=== PATIENT | male | born 1945 | race Caucasian/White ===

== ENCOUNTER 2019-10-28 08:40 | Day surgery (SDC) | payer MEDICARE ==
[2019-10-28] MEDS ORDERED: LIDOcaine 2% 5ml jelly ONE (09:37)
[2019-10-28 10:38] LABS: BASOPHILS % (AUTO) 0.5 % (0-1); EOSINOPHILS # (AUTO) 0.1 X10'3 (0-0.9); EOSINOPHILS % (AUTO) 1.2 % (0-6); HEMATOCRIT 40.6 % (42.0-52.0); HEMOGLOBIN 13.8 g/dl (14.0-17.9); LYMPHOCYTES # (AUTO) 1.2 X10'3 (1.1-4.8); LYMPHOCYTES % (AUTO) 17.4 % (21-51); MEAN CORPUSCULAR HEMOGLOBIN 32.5 PG (27.0-31.0); MEAN CORPUSCULAR VOLUME 95.6 FL (78-98); MEAN PLATELET VOLUME 7.6 FL (7.4-10.4); MONOCYTES # (AUTO) 0.6 X10'3 (0-0.9); NEUTROPHILS # (AUTO) 5.2 X10'3 (1.8-7.7); NEUTROPHILS % (AUTO) 72.9 % (42-75); PLATELET COUNT 199 X10'3 (140-440); RED BLOOD COUNT 4.24 X10'6 (4.70-6.10); WHITE BLOOD COUNT 7.1 X10'3 (4.5-11.0)
[2019-10-28 10:52] LABS: ALANINE AMINOTRANSFERASE 29 U/L (12-78); ALBUMIN 3.5 G/DL (3.4-5.0); ALKALINE PHOSPHATASE 43 IU/L (46-116); ANION GAP 3 (8-16); ASPARTATE AMINO TRANSFERASE 33 U/L (10-37); BILIRUBIN,TOTAL 0.5 MG/DL (0.1-1.0); BLOOD UREA NITROGEN 22 MG/DL (7-18); BUN/CREATININE RATIO 20.8 (5.4-32.0); CALCIUM 8.9 MG/DL (8.5-10.1); CHLORIDE 103 MMOL/L (99-107); CREATININE 1.06 MG/DL (0.60-1.10); GLUCOSE 179 MG/DL (70-104); POTASSIUM 3.8 MMOL/L (3.5-5.1); SODIUM 137 MMOL/L (135-145); TOTAL CARBON DIOXIDE 31.3 MMOL/L (24-32); TOTAL PROTEIN 6.9 G/DL (6.4-8.2); eGFR 69 ML/MIN
[2019-10-28 11:34] LABS: HEMOGLOBIN A1C 7.6 % (4.5-6.2)
== END 2019-10-28 10:40 | disposition home or self-care (01) ==
LOC: WOUND CARE 08:40
PROVIDERS: ATTEND Nurse Practitioner
DX: E11.621 Type 2 diabetes mellitus with foot ulcer (principal); L97.511 Non-pressure chronic ulcer of other part of right foot limited to breakdown of skin; L97.811 Non-pressure chronic ulcer of other part of right lower leg limited to breakdown of skin; L97.821 Non-pressure chronic ulcer of other part of left lower leg limited to breakdown of skin; Q82.0 Hereditary lymphedema; I48.19 Other persistent atrial fibrillation; I87.2 Venous insufficiency (chronic) (peripheral); I11.0 Hypertensive heart disease with heart failure; I50.9 Heart failure, unspecified; Z87.891 Personal history of nicotine dependence
CPT/HCPCS: 36415; 36416; 80053; 82948; 83036; 85025; 85651; 86140; 97597; 97598

== ENCOUNTER 2019-11-04 08:17 | Day surgery (SDC) | payer MEDICARE ==
[2019-11-04] MEDS ORDERED: LIDOcaine 2% 5ml jelly ONE (08:44)
== END 2019-11-04 09:48 | disposition home or self-care (01) ==
LOC: WOUND CARE 08:17
PROVIDERS: ATTEND Nurse Practitioner
DX: E11.621 Type 2 diabetes mellitus with foot ulcer (principal); L97.511 Non-pressure chronic ulcer of other part of right foot limited to breakdown of skin; L97.811 Non-pressure chronic ulcer of other part of right lower leg limited to breakdown of skin; L97.821 Non-pressure chronic ulcer of other part of left lower leg limited to breakdown of skin; Q82.0 Hereditary lymphedema; I48.19 Other persistent atrial fibrillation; I87.2 Venous insufficiency (chronic) (peripheral); I11.0 Hypertensive heart disease with heart failure; I50.9 Heart failure, unspecified; Z87.891 Personal history of nicotine dependence
CPT/HCPCS: 82948; 87070; 87075; 87077; 87102; 87186; 97597; 97598

== ENCOUNTER 2019-11-11 08:16 | Outpatient (CLI) | payer MEDICARE | END 2019-11-11 09:21 | disposition home or self-care (01) | LOC: WOUND CARE 08:16 → EDSTATUS 08:20 → WOUND CARE 09:21 | PROVIDERS: ATTEND Nurse Practitioner | DX: E11.621 Type 2 diabetes mellitus with foot ulcer (principal); L97.515 Non-pressure chronic ulcer of other part of right foot with muscle involvement without evidence of necrosis; L97.521 Non-pressure chronic ulcer of other part of left foot limited to breakdown of skin; L97.811 Non-pressure chronic ulcer of other part of right lower leg limited to breakdown of skin; L97.821 Non-pressure chronic ulcer of other part of left lower leg limited to breakdown of skin; Q82.0 Hereditary lymphedema; I48.19 Other persistent atrial fibrillation; I87.2 Venous insufficiency (chronic) (peripheral); I11.0 Hypertensive heart disease with heart failure; I50.9 Heart failure, unspecified; Z87.891 Personal history of nicotine dependence | CPT/HCPCS: 29580; 82948; G0463 ==

== ENCOUNTER 2019-11-15 08:00 | Outpatient (CLI) | payer MEDICARE ==
[2019-11-15] MEDS ORDERED: LIDOcaine 2% 5ml jelly ONE ×2 (08:40→09:07)
== END 2019-11-15 09:38 | disposition home or self-care (01) ==
LOC: EDSTATUS 08:00 → WOUND CARE 08:00
PROVIDERS: ATTEND Registered Nurse General Practice
DX: E11.621 Type 2 diabetes mellitus with foot ulcer (principal); L97.512 Non-pressure chronic ulcer of other part of right foot with fat layer exposed; L97.521 Non-pressure chronic ulcer of other part of left foot limited to breakdown of skin; I48.19 Other persistent atrial fibrillation; I87.2 Venous insufficiency (chronic) (peripheral); I11.0 Hypertensive heart disease with heart failure; I50.9 Heart failure, unspecified; Q82.0 Hereditary lymphedema; E66.9 Obesity, unspecified; Z87.891 Personal history of nicotine dependence; Z68.42 Body mass index [BMI] 45.0-49.9, adult
CPT/HCPCS: 36416; 82948; 97597; 97598

== ENCOUNTER 2019-11-23 07:50 | Outpatient (CLI) | payer MEDICARE ==
[2019-11-23] MEDS ORDERED: LIDOcaine 2% 5ml jelly ONE (08:37)
== END 2019-11-23 09:30 | disposition home or self-care (01) ==
LOC: WOUND CARE 07:50 → EDSTATUS 08:20 → WOUND CARE 09:30
PROVIDERS: ATTEND Nurse Practitioner
DX: E11.621 Type 2 diabetes mellitus with foot ulcer (principal); L97.511 Non-pressure chronic ulcer of other part of right foot limited to breakdown of skin; E11.622 Type 2 diabetes mellitus with other skin ulcer; L97.811 Non-pressure chronic ulcer of other part of right lower leg limited to breakdown of skin; L97.821 Non-pressure chronic ulcer of other part of left lower leg limited to breakdown of skin; E66.9 Obesity, unspecified; Q82.0 Hereditary lymphedema; I48.19 Other persistent atrial fibrillation; I87.2 Venous insufficiency (chronic) (peripheral); I11.0 Hypertensive heart disease with heart failure; I50.9 Heart failure, unspecified; Z87.891 Personal history of nicotine dependence; Z68.42 Body mass index [BMI] 45.0-49.9, adult
CPT/HCPCS: 36416; 82948; 87070; 87075; 87077; 87102; 87186; 97597; 97598

== ENCOUNTER 2019-11-29 08:15 | Day surgery (SDC) | payer MEDICARE ==
[2019-11-29] MEDS ORDERED: LIDOcaine 2% 5ml jelly ONE (08:31)
== END 2019-11-29 09:15 | disposition home or self-care (01) ==
LOC: WOUND CARE 08:15
PROVIDERS: ATTEND Nurse Practitioner
DX: E11.621 Type 2 diabetes mellitus with foot ulcer (principal); L97.512 Non-pressure chronic ulcer of other part of right foot with fat layer exposed; E11.622 Type 2 diabetes mellitus with other skin ulcer; L97.811 Non-pressure chronic ulcer of other part of right lower leg limited to breakdown of skin; L97.821 Non-pressure chronic ulcer of other part of left lower leg limited to breakdown of skin; Q82.0 Hereditary lymphedema; E66.9 Obesity, unspecified; I48.19 Other persistent atrial fibrillation; I87.2 Venous insufficiency (chronic) (peripheral); I11.0 Hypertensive heart disease with heart failure; I50.9 Heart failure, unspecified; Z87.891 Personal history of nicotine dependence; Z68.42 Body mass index [BMI] 45.0-49.9, adult
CPT/HCPCS: 36416; 82948; 97597; 97598

== ENCOUNTER 2019-12-07 07:44 | Outpatient (CLI) | payer MEDICARE ==
[2019-12-07] MEDS ORDERED: LIDOcaine 2% 5ml jelly ONE (09:11)
== END 2019-12-07 23:59 | disposition home or self-care (01) ==
LOC: WOUND CARE 07:44 → EDSTATUS 08:20 → WOUND CARE 23:59
PROVIDERS: ATTEND Nurse Practitioner
DX: E11.621 Type 2 diabetes mellitus with foot ulcer (principal); L97.512 Non-pressure chronic ulcer of other part of right foot with fat layer exposed; L97.521 Non-pressure chronic ulcer of other part of left foot limited to breakdown of skin; E11.622 Type 2 diabetes mellitus with other skin ulcer; L97.811 Non-pressure chronic ulcer of other part of right lower leg limited to breakdown of skin; L97.821 Non-pressure chronic ulcer of other part of left lower leg limited to breakdown of skin; I48.19 Other persistent atrial fibrillation; I87.2 Venous insufficiency (chronic) (peripheral); I11.0 Hypertensive heart disease with heart failure; I50.9 Heart failure, unspecified; Q82.0 Hereditary lymphedema; E66.9 Obesity, unspecified; Z87.891 Personal history of nicotine dependence; Z68.42 Body mass index [BMI] 45.0-49.9, adult
CPT/HCPCS: 36416; 82948; 97597; 97598

== ENCOUNTER 2019-12-14 07:53 | Outpatient (CLI) | payer MEDICARE ==
[2019-12-14] MEDS ORDERED: LIDOcaine 2% 5ml jelly ONE (08:46)
== END 2019-12-14 23:59 | disposition home or self-care (01) ==
LOC: WOUND CARE 07:53
PROVIDERS: ATTEND Nurse Practitioner
DX: E11.622 Type 2 diabetes mellitus with other skin ulcer (principal); I83.018 Varicose veins of right lower extremity with ulcer other part of lower leg; L97.812 Non-pressure chronic ulcer of other part of right lower leg with fat layer exposed; E11.621 Type 2 diabetes mellitus with foot ulcer; I83.015 Varicose veins of right lower extremity with ulcer other part of foot; L97.512 Non-pressure chronic ulcer of other part of right foot with fat layer exposed; I83.028 Varicose veins of left lower extremity with ulcer other part of lower leg; L97.822 Non-pressure chronic ulcer of other part of left lower leg with fat layer exposed; I83.025 Varicose veins of left lower extremity with ulcer other part of foot; L97.521 Non-pressure chronic ulcer of other part of left foot limited to breakdown of skin; Q82.0 Hereditary lymphedema; I87.2 Venous insufficiency (chronic) (peripheral); I70.242 Atherosclerosis of native arteries of left leg with ulceration of calf; L97.221 Non-pressure chronic ulcer of left calf limited to breakdown of skin; I70.232 Atherosclerosis of native arteries of right leg with ulceration of calf; L97.211 Non-pressure chronic ulcer of right calf limited to breakdown of skin; I48.19 Other persistent atrial fibrillation; I11.0 Hypertensive heart disease with heart failure; I50.9 Heart failure, unspecified; E66.9 Obesity, unspecified; Z87.891 Personal history of nicotine dependence; Z68.42 Body mass index [BMI] 45.0-49.9, adult
CPT/HCPCS: 36416; 82948; 87070; 87075; 87077; 87186; 93925; 97597; 97598

== ENCOUNTER 2019-12-22 09:04 | Outpatient (CLI) | payer MEDICARE ==
[2019-12-22] MEDS ORDERED: LIDOcaine 2% 5ml jelly ONE (09:43)
[2019-12-22] MEDS ORDERED: gentamicin 0.1% topical ointment 15gm TP ONE (10:32)
== END 2019-12-22 23:59 | disposition home or self-care (01) ==
LOC: WOUND CARE 09:04
PROVIDERS: ATTEND Nurse Practitioner
DX: E11.622 Type 2 diabetes mellitus with other skin ulcer (principal); I83.018 Varicose veins of right lower extremity with ulcer other part of lower leg; L97.812 Non-pressure chronic ulcer of other part of right lower leg with fat layer exposed; E11.621 Type 2 diabetes mellitus with foot ulcer; I83.015 Varicose veins of right lower extremity with ulcer other part of foot; L97.515 Non-pressure chronic ulcer of other part of right foot with muscle involvement without evidence of necrosis; I83.025 Varicose veins of left lower extremity with ulcer other part of foot; L97.521 Non-pressure chronic ulcer of other part of left foot limited to breakdown of skin; I83.028 Varicose veins of left lower extremity with ulcer other part of lower leg; L97.822 Non-pressure chronic ulcer of other part of left lower leg with fat layer exposed; E11.65 Type 2 diabetes mellitus with hyperglycemia; I70.242 Atherosclerosis of native arteries of left leg with ulceration of calf; L97.221 Non-pressure chronic ulcer of left calf limited to breakdown of skin; I70.232 Atherosclerosis of native arteries of right leg with ulceration of calf; L97.211 Non-pressure chronic ulcer of right calf limited to breakdown of skin; I48.19 Other persistent atrial fibrillation; I11.0 Hypertensive heart disease with heart failure; I50.9 Heart failure, unspecified; E66.9 Obesity, unspecified; Z87.891 Personal history of nicotine dependence; Z68.42 Body mass index [BMI] 45.0-49.9, adult
CPT/HCPCS: 29581; 82948

== ENCOUNTER 2019-12-28 09:14 | Outpatient (CLI) | payer MEDICARE ==
[2019-12-28] MEDS ORDERED: LIDOcaine 2% 5ml jelly ONE (09:36)
[2019-12-28] MEDS ORDERED: gentamicin 0.1% topical ointment 15gm TP ONE (10:10)
== END 2019-12-28 23:59 | disposition home or self-care (01) ==
LOC: WOUND CARE 09:14
PROVIDERS: ATTEND Nurse Practitioner
DX: E11.622 Type 2 diabetes mellitus with other skin ulcer (principal); I83.018 Varicose veins of right lower extremity with ulcer other part of lower leg; L97.812 Non-pressure chronic ulcer of other part of right lower leg with fat layer exposed; I83.028 Varicose veins of left lower extremity with ulcer other part of lower leg; L97.822 Non-pressure chronic ulcer of other part of left lower leg with fat layer exposed; E11.621 Type 2 diabetes mellitus with foot ulcer; I83.015 Varicose veins of right lower extremity with ulcer other part of foot; L97.512 Non-pressure chronic ulcer of other part of right foot with fat layer exposed; I70.242 Atherosclerosis of native arteries of left leg with ulceration of calf; L97.221 Non-pressure chronic ulcer of left calf limited to breakdown of skin; Q82.0 Hereditary lymphedema; E11.65 Type 2 diabetes mellitus with hyperglycemia; I48.19 Other persistent atrial fibrillation; I11.0 Hypertensive heart disease with heart failure; I50.9 Heart failure, unspecified; E66.9 Obesity, unspecified; Z87.891 Personal history of nicotine dependence; Z68.42 Body mass index [BMI] 45.0-49.9, adult
CPT/HCPCS: 11042; 29581; 36416; 82948

== ENCOUNTER 2020-01-04 09:15 | Outpatient (CLI) | payer MEDICARE ==
[2020-01-04] MEDS ORDERED: LIDOcaine 2% 5ml jelly ONE (09:45)
== END 2020-01-04 23:59 | disposition home or self-care (01) ==
LOC: WOUND CARE 09:15
PROVIDERS: ATTEND Nurse Practitioner
DX: E11.622 Type 2 diabetes mellitus with other skin ulcer (principal); I83.018 Varicose veins of right lower extremity with ulcer other part of lower leg; L97.812 Non-pressure chronic ulcer of other part of right lower leg with fat layer exposed; I83.028 Varicose veins of left lower extremity with ulcer other part of lower leg; L97.822 Non-pressure chronic ulcer of other part of left lower leg with fat layer exposed; E11.621 Type 2 diabetes mellitus with foot ulcer; I83.015 Varicose veins of right lower extremity with ulcer other part of foot; L97.512 Non-pressure chronic ulcer of other part of right foot with fat layer exposed; I70.242 Atherosclerosis of native arteries of left leg with ulceration of calf; L97.221 Non-pressure chronic ulcer of left calf limited to breakdown of skin; I70.232 Atherosclerosis of native arteries of right leg with ulceration of calf; L97.211 Non-pressure chronic ulcer of right calf limited to breakdown of skin; Q82.0 Hereditary lymphedema; E11.65 Type 2 diabetes mellitus with hyperglycemia; I48.19 Other persistent atrial fibrillation; I11.0 Hypertensive heart disease with heart failure; I50.9 Heart failure, unspecified; E66.9 Obesity, unspecified; Z87.891 Personal history of nicotine dependence; Z68.42 Body mass index [BMI] 45.0-49.9, adult
CPT/HCPCS: 82948; 97597; 97598

== ENCOUNTER 2020-01-11 09:13 | Outpatient (CLI) | payer MEDICARE ==
[2020-01-11] MEDS ORDERED: LIDOcaine 2% 5ml jelly ONE (10:19)
== END 2020-01-11 23:59 | disposition home or self-care (01) ==
LOC: WOUND CARE 09:13
PROVIDERS: ATTEND Nurse Practitioner
DX: E11.622 Type 2 diabetes mellitus with other skin ulcer (principal); I83.018 Varicose veins of right lower extremity with ulcer other part of lower leg; L97.812 Non-pressure chronic ulcer of other part of right lower leg with fat layer exposed; I83.028 Varicose veins of left lower extremity with ulcer other part of lower leg; L97.822 Non-pressure chronic ulcer of other part of left lower leg with fat layer exposed; E11.621 Type 2 diabetes mellitus with foot ulcer; I83.015 Varicose veins of right lower extremity with ulcer other part of foot; L97.512 Non-pressure chronic ulcer of other part of right foot with fat layer exposed; I70.242 Atherosclerosis of native arteries of left leg with ulceration of calf; L97.221 Non-pressure chronic ulcer of left calf limited to breakdown of skin; I70.232 Atherosclerosis of native arteries of right leg with ulceration of calf; L97.211 Non-pressure chronic ulcer of right calf limited to breakdown of skin; I83.025 Varicose veins of left lower extremity with ulcer other part of foot; L97.521 Non-pressure chronic ulcer of other part of left foot limited to breakdown of skin; Q82.0 Hereditary lymphedema; E11.65 Type 2 diabetes mellitus with hyperglycemia; I48.19 Other persistent atrial fibrillation; I11.0 Hypertensive heart disease with heart failure; I50.9 Heart failure, unspecified; E66.9 Obesity, unspecified; Z87.891 Personal history of nicotine dependence; Z68.42 Body mass index [BMI] 45.0-49.9, adult
CPT/HCPCS: 11042; 11045; 97597

== ENCOUNTER 2020-01-19 09:20 | Outpatient (CLI) | payer MEDICARE ==
[2020-01-19] MEDS ORDERED: LIDOcaine 2% 5ml jelly ONE ×2 (10:04→10:05)
== END 2020-01-19 23:59 | disposition home or self-care (01) ==
LOC: WOUND CARE 09:20
PROVIDERS: ATTEND Nurse Practitioner
DX: E11.622 Type 2 diabetes mellitus with other skin ulcer (principal); I83.018 Varicose veins of right lower extremity with ulcer other part of lower leg; L97.812 Non-pressure chronic ulcer of other part of right lower leg with fat layer exposed; I83.028 Varicose veins of left lower extremity with ulcer other part of lower leg; L97.822 Non-pressure chronic ulcer of other part of left lower leg with fat layer exposed; E11.621 Type 2 diabetes mellitus with foot ulcer; I83.015 Varicose veins of right lower extremity with ulcer other part of foot; L97.512 Non-pressure chronic ulcer of other part of right foot with fat layer exposed; I70.242 Atherosclerosis of native arteries of left leg with ulceration of calf; L97.221 Non-pressure chronic ulcer of left calf limited to breakdown of skin; I70.232 Atherosclerosis of native arteries of right leg with ulceration of calf; L97.211 Non-pressure chronic ulcer of right calf limited to breakdown of skin; I83.025 Varicose veins of left lower extremity with ulcer other part of foot; L97.521 Non-pressure chronic ulcer of other part of left foot limited to breakdown of skin; Q82.0 Hereditary lymphedema; E11.65 Type 2 diabetes mellitus with hyperglycemia; I48.19 Other persistent atrial fibrillation; I11.0 Hypertensive heart disease with heart failure; I50.9 Heart failure, unspecified; E66.9 Obesity, unspecified; Z87.891 Personal history of nicotine dependence; Z68.42 Body mass index [BMI] 45.0-49.9, adult
CPT/HCPCS: 11042; 11045

== ENCOUNTER 2020-02-02 10:51 | Outpatient (CLI) | payer MEDICARE ==
[2020-02-02] MEDS ORDERED: LIDOcaine 2% 5ml jelly ONE ×2 (12:03)
== END 2020-02-02 23:59 | disposition home or self-care (01) ==
LOC: WOUND CARE 10:51
PROVIDERS: ATTEND Nurse Practitioner
DX: E11.622 Type 2 diabetes mellitus with other skin ulcer (principal); I83.018 Varicose veins of right lower extremity with ulcer other part of lower leg; L97.812 Non-pressure chronic ulcer of other part of right lower leg with fat layer exposed; I83.028 Varicose veins of left lower extremity with ulcer other part of lower leg; L97.822 Non-pressure chronic ulcer of other part of left lower leg with fat layer exposed; E11.621 Type 2 diabetes mellitus with foot ulcer; I83.015 Varicose veins of right lower extremity with ulcer other part of foot; L97.512 Non-pressure chronic ulcer of other part of right foot with fat layer exposed; I70.242 Atherosclerosis of native arteries of left leg with ulceration of calf; L97.221 Non-pressure chronic ulcer of left calf limited to breakdown of skin; I70.232 Atherosclerosis of native arteries of right leg with ulceration of calf; L97.211 Non-pressure chronic ulcer of right calf limited to breakdown of skin; I83.025 Varicose veins of left lower extremity with ulcer other part of foot; L97.521 Non-pressure chronic ulcer of other part of left foot limited to breakdown of skin; Q82.0 Hereditary lymphedema; E11.65 Type 2 diabetes mellitus with hyperglycemia; I48.19 Other persistent atrial fibrillation; I11.0 Hypertensive heart disease with heart failure; I50.9 Heart failure, unspecified; E66.9 Obesity, unspecified; Z87.891 Personal history of nicotine dependence; Z68.42 Body mass index [BMI] 45.0-49.9, adult
CPT/HCPCS: 11042; 11045; 82948; 87070; 87075; 87077; 87186

== ENCOUNTER → 2020-04-19 | Outpatient (CLI) | payer MEDICARE ==
[~2020-04-19] MED LIST: LIDOcaine 2% 5ml jelly ONE
== END | disposition home or self-care (01) ==
LOC: WOUND CARE 12:26
PROVIDERS: ATTEND Nurse Practitioner
DX: E11.622 Type 2 diabetes mellitus with other skin ulcer (principal); I83.018 Varicose veins of right lower extremity with ulcer other part of lower leg; L97.812 Non-pressure chronic ulcer of other part of right lower leg with fat layer exposed; I83.028 Varicose veins of left lower extremity with ulcer other part of lower leg; L97.822 Non-pressure chronic ulcer of other part of left lower leg with fat layer exposed; E11.621 Type 2 diabetes mellitus with foot ulcer; I83.015 Varicose veins of right lower extremity with ulcer other part of foot; L97.515 Non-pressure chronic ulcer of other part of right foot with muscle involvement without evidence of necrosis; I83.025 Varicose veins of left lower extremity with ulcer other part of foot; L97.521 Non-pressure chronic ulcer of other part of left foot limited to breakdown of skin; I70.242 Atherosclerosis of native arteries of left leg with ulceration of calf; L97.221 Non-pressure chronic ulcer of left calf limited to breakdown of skin; I70.232 Atherosclerosis of native arteries of right leg with ulceration of calf; L97.211 Non-pressure chronic ulcer of right calf limited to breakdown of skin; Q82.0 Hereditary lymphedema; E11.65 Type 2 diabetes mellitus with hyperglycemia; I48.19 Other persistent atrial fibrillation; I11.0 Hypertensive heart disease with heart failure; I50.9 Heart failure, unspecified; E66.9 Obesity, unspecified; Z87.891 Personal history of nicotine dependence; Z68.42 Body mass index [BMI] 45.0-49.9, adult
CPT/HCPCS: 11042; 97597

== ENCOUNTER 2021-03-14 11:00 | Inpatient (IN) | payer MEDICARE ==
[~2021-03-14] VITALS: Ht 182.9 cm; Wt 136.4 kg
[~2021-03-14 11:00] MED LIST changes: +ASPI-1264 PO; +CARV25TA PO; +CEPH-585 PO; +DIGO125T PO; -LIDOcaine 2% 5ml jelly ONE; +LISI20TA28 PO; +SPIR25TA5 PO; +WARF3TAB56 PO
[2021-03-14 11:57] LABS: CLARITY,URINE CLOUDY (Clear); GLUCOSE, URINE NEGATIVE (Neg); KETONES,URINE TRACE mg/dl (Neg); LEUKOCYTE ESTERASE ,URINE NEGATIVE (Neg); NITRITES, URINE NEGATIVE (Neg); OCCULT BLOOD,URINE LARGE (Neg); PH,URINE 6.5 (4.8-8.0); PROTEIN,URINE 100 mg/dl (Neg)
[2021-03-14 12:00] LABS: BASOPHILS % (AUTO) 0.3 % (0-1); EOSINOPHILS % (AUTO) 0.3 % (0-6); HEMATOCRIT 42.9 % (42.0-52.0); HEMOGLOBIN 14.4 g/dl (14.0-17.9); LYMPHOCYTES # (AUTO) 0.6 X10'3 (1.1-4.8); LYMPHOCYTES % (AUTO) 9.4 % (21-51); MEAN CORPUSCULAR HEMOGLOBIN 30.9 PG (27.0-31.0); MEAN CORPUSCULAR HGB CONC 33.6 g/dL (33.0-36.5); MEAN CORPUSCULAR VOLUME 91.8 FL (78-98); MEAN PLATELET VOLUME 6.6 FL (7.4-10.4); MONOCYTES # (AUTO) 0.4 X10'3 (0-0.9); MONOCYTES % (AUTO) 5.5 % (2-12); NEUTROPHILS # (AUTO) 5.4 X10'3 (1.8-7.7); NEUTROPHILS % (AUTO) 84.5 % (42-75); PLATELET COUNT 158 X10'3 (140-440); RED BLOOD COUNT 4.68 X10'6 (4.70-6.10); RED CELL DISTRIBUTION WIDTH 16.8 % (11.5-14.5); WHITE BLOOD COUNT 6.4 X10'3 (4.5-11.0)
[2021-03-14 12:03] LABS: UA COLLECTION TYPE CLN CATCH MIDSTREAM
[2021-03-14 12:04] LABS: COLOR,URINE AMBER (Yellow)
[2021-03-14 12:05] LABS: SQUAMOUS EPITHELIAL CELL,UR MODERATE /LPF (FEW)
[2021-03-14 12:07] LABS: RBC,URINE TNTC /HPF (0-2)
[2021-03-14 12:10] LABS: CAL OXALATE CRYSTALS FEW /HPF (NEGATIVE)
[2021-03-14 12:12] LABS: HYALINE CASTS 0-3 /LPF (NEGATIVE); MUCUS STRANDS MODERATE /LPF (Neg)
[2021-03-14 12:13] LABS: APTT 34 SECONDS (22-32)
[2021-03-14 12:13] LABS: BACTERIA,URINE FEW /HPF (Neg); WBC,URINE 0-4 /HPF (0-4)
[2021-03-14 12:14] LABS: ALANINE AMINOTRANSFERASE 28 U/L (12-78); ALBUMIN 2.8 G/DL (3.4-5.0); ALKALINE PHOSPHATASE 65 IU/L (46-116); ANION GAP 7 (8-16); ASPARTATE AMINO TRANSFERASE 20 U/L (10-37); BILIRUBIN,TOTAL 1.5 MG/DL (0.1-1.0); BLOOD UREA NITROGEN 14 MG/DL (7-18); BUN/CREATININE RATIO 31.1 (5.4-32.0); CALCIUM 8.9 MG/DL (8.5-10.1); CHLORIDE 106 MMOL/L (99-107); CREATININE 0.45 MG/DL (0.60-1.10); GLUCOSE 161 MG/DL (70-104); POTASSIUM 3.2 MMOL/L (3.5-5.1); SODIUM 144 MMOL/L (135-145); TOTAL CARBON DIOXIDE 31.1 MMOL/L (24-32); TOTAL PROTEIN 5.7 G/DL (6.4-8.2); eGFR > 90 ML/MIN
[2021-03-14] MEDS ORDERED: iohexol 300mg/ml 100ml inj. ONE (13:18)
--- NOTE | 2021-03-14 13:37 | NUR ---
PT FOUND WITH iv OUT, BLOOD OOZING FROM SITE. PRESSURE DRESSING APPLIED, IV RE-STARTED. PT SEEMS MORE CONFUSED THAT UPON ARRIVAL. PT HAS REMOVED CARDIAC MONTIOR ELECTRODES AND HALF OF GOWN. PT IS TALKING, DOES NOT MAKE SENSE. RE-ORIENTED TO HOSPTIAL ENVIRONEMENT. DR. MEJÍA AT BEDSIDE.
--- NOTE | 2021-03-14 13:57 | NUR ---
PT TO CT
--- NOTE | 2021-03-14 14:10 | NUR ---
RETURNED FROM CT
--- NOTE | 2021-03-14 15:09 | NUR ---
PT PLACED BACK ON MONITOR, BUT IMMEDIATELY REMOVES LEADS. VSS AT THIS TIME. HR 80-90S, AFIB, 02 96% ON RA, BP 179/98
--- NOTE | 2021-03-14 16:05 | NUR ---
PT HAD LARGE BM, PER CARE RENDERED, NEW BRIEF PLACED. MAX ASSIST TO TURN PT, TOLERATED TURNS WELL.
[2021-03-14] MEDS ORDERED: hydrALAZINE 20mg/ml inj. IV ONE (16:15)
[2021-03-14 16:20] LABS: ABG BASE EXCESS 3.8 mmol/L (-2.0-2.0); ABG HCO3 28.5 mmol/L (22.0-26.0); ABG PCO2 (T) 43.1 mmHg (35.0-48.0); ABG PO2 (T) 62.1 mmHg (75.0-100.0); FCOHb 1.9 % (0.0-3.9); FMetHb 0.3 % (0.0-1.5); TOTAL HEMOGLOBIN 14.3 G/dl (14.0-18.0)
[2021-03-14 16:31] LABS: D-DIMER 0.34 MG/L FEU (0-0.50)
[2021-03-14 16:33] LABS: BASOPHILS % (AUTO) 0.3 % (0-1); EOSINOPHILS % (AUTO) 0.2 % (0-6); HEMATOCRIT 42.7 % (42.0-52.0); HEMOGLOBIN 14.4 g/dl (14.0-17.9); LYMPHOCYTES # (AUTO) 0.7 X10'3 (1.1-4.8); LYMPHOCYTES % (AUTO) 10.2 % (21-51); MEAN CORPUSCULAR HEMOGLOBIN 30.9 PG (27.0-31.0); MEAN CORPUSCULAR HGB CONC 33.7 g/dL (33.0-36.5); MEAN CORPUSCULAR VOLUME 91.7 FL (78-98); MEAN PLATELET VOLUME 6.9 FL (7.4-10.4); MONOCYTES # (AUTO) 0.5 X10'3 (0-0.9); MONOCYTES % (AUTO) 6.7 % (2-12); NEUTROPHILS # (AUTO) 5.6 X10'3 (1.8-7.7); NEUTROPHILS % (AUTO) 82.6 % (42-75); PLATELET COUNT 172 X10'3 (140-440); RED BLOOD COUNT 4.65 X10'6 (4.70-6.10); RED CELL DISTRIBUTION WIDTH 16.9 % (11.5-14.5); WHITE BLOOD COUNT 6.8 X10'3 (4.5-11.0)
[2021-03-14] MEDS ORDERED: ASPI-1397 PO (16:42)
[2021-03-14] MEDS ORDERED: GLIP2.5T3 PO (16:43)
[2021-03-14] MEDS ORDERED: CARV25TA2 PO (16:43)
[2021-03-14] MEDS ORDERED: DOCU100C40 PO (16:43)
[2021-03-14] MEDS ORDERED: LAN0.125T PO (16:43)
[2021-03-14] MEDS ORDERED: WARF2.5T82 PO (16:43)
[2021-03-14] MEDS ORDERED: LISI10TA27 PO (16:43)
[2021-03-14] MEDS ORDERED: INSU100V43 SQ (16:43)
[2021-03-14] MEDS ORDERED: FURO20TA4 PO (16:43)
[2021-03-14] MEDS ORDERED: METF-1203 PO (16:43)
[2021-03-14] MEDS ORDERED: WARF-55 PO (16:43)
[2021-03-14] MEDS ORDERED: DULO60CA65 PO (16:43)
[2021-03-14] MEDS ORDERED: LEVO175T7 PO (16:43)
[2021-03-14] MEDS ORDERED: [UNRECOGNIZED DRUG - CODE] PO (16:44)
[2021-03-14] MEDS ORDERED: morphine 4 MG/ML inj SYRINge IV ONE (16:45)
[2021-03-14] MEDS ORDERED: OMEP20TA23 PO (16:46)
[2021-03-14] MEDS ORDERED: HYDR-3965 PO (16:46)
[2021-03-14] MEDS ORDERED: POLY119P2 PO (16:46)
[2021-03-14] MEDS ORDERED: ALBU6.7H9 INH (16:46)
[2021-03-14 16:48] LABS: C-REACTIVE PROTEIN 1.48 MG/DL (0.0-0.5)
[2021-03-14] MEDS ORDERED: metoprolol tartrate 1mg/ml inj IV ONE (16:55)
[2021-03-14] MEDS ORDERED: iohexol 350MG/ML 100ml bottle IV ONE (17:01)
--- NOTE | 2021-03-14 17:05 | NUR ---
TELENEURO CONSULT SPEAKING WITH PT
[2021-03-14] MEDS ORDERED: non-formulary drug (Duloxetine HCl 1 CAP) PO PRN (18:25)
[2021-03-14] MEDS ORDERED: dextrose ORAL solution 15 GM/59 ML bottle PO PRN ×2 (18:35)
[2021-03-14] MEDS ORDERED: bisacodyl 10mg suppository rectal RC PRN (18:35)
[2021-03-14] MEDS ORDERED: dextrose 50%-water 50ml dispensing syringe IV PRN ×2 (18:35)
[2021-03-14] MEDS ORDERED: magnesium hydroxide 30ml (MOM) UD suspension PO PRN (18:35)
[2021-03-14] MEDS ORDERED: acetaminophen 325mg tablet PO PRN ×2 (18:35)
[2021-03-14] MEDS ORDERED: magnesium 2GM in 50ml NS 50 ML IV PRN (18:35)
[2021-03-14] MEDS ORDERED: morphine 2 MG/ML inj. syringe IV PRN ×2 (18:35)
[2021-03-14] MEDS ORDERED: HYDROcodone/acetaminophen 5mg/325mg tablet PO PRN (18:35)
[2021-03-14] MEDS ORDERED: ondansetron/PF 4mg/2ml inj IV PRN (18:35)
[2021-03-14] MEDS ORDERED: HYDROcodone/acetaminophen 10/325mg tab PO PRN (18:35)
[2021-03-14] MEDS ORDERED: MESSAGE TO PHARMACY PO ONE (18:35)
[2021-03-14] MEDS ORDERED: acetaminophen 650mg rectal suppository RC PRN (18:35)
[2021-03-14] MEDS ORDERED: magnesium 4gm in 100ml NS 100 ML IV PRN (18:35)
[2021-03-14] MEDS ORDERED: diphenhydrAMINE 25mg capsule PO PRN (18:35)
[2021-03-14] MEDS ORDERED: glucagon, human recombinant 1mg kit SUBCUT PRN (18:35)
[2021-03-14] MEDS ORDERED: magnesium Cl slow-release 64mg tablet PO PRN (18:35)
[2021-03-14] MEDS ORDERED: mag hydrox/Alum hydrox/simeth 30ml oral suspension PO PRN (18:35)
[2021-03-14] MEDS ORDERED: potassium CL 10mEq/100ml bag 100 ML IV PRN (18:35)
[2021-03-14] MEDS ORDERED: methylPREDNISolone sod succ 125mg/2ml vial IV ONE (18:40)
[2021-03-14] MEDS: CefTRIAXone/D5W-Rocephin 1gm 50 ML IV SCH (18:40)
[2021-03-14] MEDS ORDERED: hydrALAZINE 20mg/ml inj. IV PRN (18:50)
[2021-03-14] MEDS: ipratropium/albuterol 3ml nebule NEB SCH ×2 (19:00→23:00)
[2021-03-14 19:07] LABS: HEMOGLOBIN A1C 6.6 % (4.5-6.2)
[2021-03-14] MEDS ORDERED: duloxetine 30mg CAPSULE.DR PO PRN (19:30)
[2021-03-14 20:00] VITALS: BP 167/105
[2021-03-14] MEDS: vancomycin/NS 1 GM ADD-VANTAGE 250 ML IV SCH (20:00)
[2021-03-14] MEDS: carVEDilol 12.5mg tablet PO SCH (20:00)
[2021-03-14] MEDS: docusate sod 100mg capsule PO SCH (20:00)
[2021-03-14] MEDS: K and/or MAG REPLACEMENT MC SCH (20:00)
[2021-03-14] MEDS ORDERED: non-formulary drug (Carvedilol (Coreg) 1 TAB) PO SCH (20:00)
--- NOTE | 2021-03-14 20:30 | NUR ---
Patient in room PCU 3026. I have received report from Brien and had the opportunity to ask questions and assume patient care.
--- NOTE | 2021-03-14 20:34 | NUR ---
TELEPHONE REPORT GIVEN TO BRETT WEINSTEIN.
[2021-03-14] MEDS: insulin glargine (Lantus) pen - multi-dose SQ SCH (21:00)
[2021-03-14] MEDS: digoxin 125mcg (0.125mg) tablet PO SCH (21:00)
--- NOTE | 2021-03-14 21:00 | NUR ---
arrived via gurney. rubio Addendum: 03/15/21 at 0059 by Cari Recinos RN arrived at 2100 via shae. transferred to bed. settling in.
[2021-03-14] MEDS ORDERED: diltiazem-NS 100mg/100ml 100 ML IV SCH (23:05)
[2021-03-14] MEDS ORDERED: phytonadione inj. 5 MG in normal saline 100ml IV soln 100 ML IV ONE (23:05)
[2021-03-14] MEDS: normal saline 1000ml 1,000 ML IV SCH (23:11)
[2021-03-15] VITALS (7 sets, daily range): BP systolic 115–151; BP diastolic 53–99
[2021-03-15] MEDS ORDERED: polyethylene glycol 3350 17gm powd pack PO PRN
[2021-03-15] MEDS: pantoprazole 40MG/NS 100ML BAG 100 ML IV SCH ×5 (01:00→20:54)
[2021-03-15] MEDS: furosemide 10 MG/1 ML 10ml inj IV SCH ×3 (01:03→20:41)
--- NOTE | 2021-03-15 01:25 | NUR ---
received patient at 2100 via e[employer]. assessment completed. pt had large BM (incontinent) full of esteban blood and lots of clots. MD notified. MD came to see pt. pt also had lung sounds of wheezing upon arrival. shortly after pt had coarse crackle wet sounding lungs. MD notified. Orders placed. approx 2330 pt was assigned a different nurse. report given to BRETT Higgins. opportunity to ask questions.
--- NOTE | 2021-03-15 01:30 | NUR ---
receieved report at 0130 from BRETT Alcala. all questions answered. pt started on Cardizem drip, bathed, IV started, and cleaned up large bloody BM. Dr is aware of bloody stool and labs where drawn. Called Dr at 0400 fro Cardizem drip increased per Dr. orders.
[2021-03-15] MEDS: ipratropium/albuterol 3ml nebule NEB SCH ×3 (03:00→23:38)
[2021-03-15 03:03] LABS: BASOPHILS % (AUTO) 0.3 % (0-1); EOSINOPHILS % (AUTO) 0 % (0-6); HEMATOCRIT 41.2 % (42.0-52.0); HEMOGLOBIN 13.9 g/dl (14.0-17.9); LYMPHOCYTES # (AUTO) 0.4 X10'3 (1.1-4.8); LYMPHOCYTES % (AUTO) 4.9 % (21-51); MEAN CORPUSCULAR HEMOGLOBIN 30.8 PG (27.0-31.0); MEAN CORPUSCULAR HGB CONC 33.6 g/dL (33.0-36.5); MEAN CORPUSCULAR VOLUME 91.7 FL (78-98); MEAN PLATELET VOLUME 7.1 FL (7.4-10.4); MONOCYTES # (AUTO) 0.1 X10'3 (0-0.9); MONOCYTES % (AUTO) 1.2 % (2-12); NEUTROPHILS # (AUTO) 7.6 X10'3 (1.8-7.7); NEUTROPHILS % (AUTO) 93.6 % (42-75); PLATELET COUNT 197 X10'3 (140-440); RED CELL DISTRIBUTION WIDTH 16.9 % (11.5-14.5); WHITE BLOOD COUNT 8.1 X10'3 (4.5-11.0)
[2021-03-15 03:13] LABS: ALANINE AMINOTRANSFERASE 33 U/L (12-78); ALKALINE PHOSPHATASE 66 IU/L (46-116); ANION GAP 13 (8-16); ASPARTATE AMINO TRANSFERASE 19 U/L (10-37); BILIRUBIN,TOTAL 1.7 MG/DL (0.1-1.0); BLOOD UREA NITROGEN 17 MG/DL (7-18); BUN/CREATININE RATIO 30.9 (5.4-32.0); CALCIUM 8.9 MG/DL (8.5-10.1); CHLORIDE 104 MMOL/L (99-107); CREATININE 0.55 MG/DL (0.60-1.10); GLUCOSE 211 MG/DL (70-104); POTASSIUM 3.2 MMOL/L (3.5-5.1); SODIUM 146 MMOL/L (135-145); TOTAL CARBON DIOXIDE 28.7 MMOL/L (24-32); TOTAL PROTEIN 5.9 G/DL (6.4-8.2); eGFR > 90 ML/MIN
[2021-03-15 03:17] LABS: CHOL/HDL RATIO 3.6 (0.00-4.99); CHOLESTEROL 146 MG/DL (0-200); HDL CHOLESTEROL 41 MG/DL (35-60); LDL CHOLESTEROL 94 MG/DL (50-100); MAGNESIUM 1.9 MG/DL (1.5-2.4); PHOSPHORUS 3.4 MG/DL (2.3-4.5); TRIGLYCERIDES 61 MG/DL (20-135)
[2021-03-15 04:01] LABS: ANISOCYTOSIS 1+; PLATELET ESTIMATE NORMAL; SMUDGE CELLS FEW; TOTAL CELLS COUNTED 100
[2021-03-15 04:02] LABS: ELLIPTOCYTES FEW
--- NOTE | 2021-03-15 06:36 | NUR ---
report given to Hina Brito RN. all questions and concerns answered.
--- NOTE | 2021-03-15 06:44 | NUR ---
Patient in room PCU 3026. I have received report from BRETT MOSES, and had the opportunity to ask questions and assume patient care.
[2021-03-15] MEDS ORDERED: pantoprazole 40mg Tablet.DR PO SCH (07:30)
[2021-03-15] MEDS: docusate sod 100mg capsule PO SCH ×3 (08:00→20:50)
[2021-03-15] MEDS ORDERED: aspirin 81mg, enteric-coated 1 TAB TABLET.DR PO SCH (08:00)
[2021-03-15] MEDS ORDERED: duloxetine 30mg CAPSULE.DR PO SCH (08:00)
[2021-03-15] MEDS: K and/or MAG REPLACEMENT MC SCH ×2 (08:00→20:00)
[2021-03-15] MEDS ORDERED: digoxin 125mcg (0.125mg) tablet PO SCH (08:00)
[2021-03-15] MEDS: levoTHYROXINE 175mcg tablet PO SCH (09:24)
[2021-03-15] MEDS: lisinopril 10 MG tablet PO SCH (09:26)
[2021-03-15] MEDS: carVEDilol 12.5mg tablet PO SCH ×2 (09:27→20:50)
[2021-03-15] MEDS: methylPREDNISolone sod succ/PF 40mg inj. IV SCH ×2 (09:27→20:41)
[2021-03-15] MEDS: vancomycin/NS 1 GM ADD-VANTAGE 250 ML IV SCH ×2 (10:43→20:42)
--- NOTE | 2021-03-15 11:03 | NUR ---
PAGE SENT Message: [id number], PT GOING TO MRI, MAY I HOLD CHASM GTT FOR PROCEDURE? HR 95. THANK YOU, FELICIA Abernathy [phone]
[2021-03-15 11:14] LABS: HEMATOCRIT 38.1 % (42.0-52.0); HEMOGLOBIN 12.9 g/dl (14.0-17.9); MEAN CORPUSCULAR HEMOGLOBIN 30.8 PG (27.0-31.0); MEAN CORPUSCULAR HGB CONC 33.8 g/dL (33.0-36.5); MEAN CORPUSCULAR VOLUME 91.1 FL (78-98); MEAN PLATELET VOLUME 7.1 FL (7.4-10.4); PLATELET COUNT 200 X10'3 (140-440); RED BLOOD COUNT 4.19 X10'6 (4.70-6.10); RED CELL DISTRIBUTION WIDTH 16.7 % (11.5-14.5); WHITE BLOOD COUNT 6.6 X10'3 (4.5-11.0)
[2021-03-15] MEDS: CefTRIAXone/D5W-Rocephin 1gm 50 ML IV SCH (11:57)
[2021-03-15] MEDS: insulin Lispro (HumaLOG) vial - multi-dose SQ SCH (12:40)
[2021-03-15] MEDS: potassium Cl 20 mEq SR tablet PO PRN ×2 (13:34→21:14)
--- NOTE | 2021-03-15 16:06 | NUR ---
Wilson Consult: Luis Rachel 9 w/ skin intact per [facility] note. Addendum: 03/15/21 at [address] Amended: Links added.
--- NOTE | 2021-03-15 16:25 | NUR ---
complete orthostatic was not completed, supine VS were done, as patient is unable to seat or stand.
--- NOTE | 2021-03-15 17:13 | NUR ---
DM consult: Pt with T2DM, well controlled with A1c 6.6%, DM education not warranted at this time. Will continue to follow. Addendum: 03/15/21 at [address] Amended: Links added.
--- NOTE | 2021-03-15 18:16 | NUR ---
Problems reprioritized. Patient report given, questions answered & plan of care reviewed with BRETT ANDERSON.
[2021-03-15 19:41] LABS: HEMATOCRIT 34.7 % (42.0-52.0); MEAN CORPUSCULAR HEMOGLOBIN 31.4 PG (27.0-31.0); MEAN CORPUSCULAR HGB CONC 34.5 g/dL (33.0-36.5); PLATELET COUNT 194 X10'3 (140-440); RED BLOOD COUNT 3.81 X10'6 (4.70-6.10); RED CELL DISTRIBUTION WIDTH 16.7 % (11.5-14.5); WHITE BLOOD COUNT 7.1 X10'3 (4.5-11.0)
[2021-03-15] MEDS: diltiazem-NS 100mg/100ml 100 ML IV SCH (20:33)
[2021-03-15] MEDS: normal saline 1000ml 1,000 ML IV SCH (20:34)
[2021-03-15] MEDS: digoxin 125mcg (0.125mg) tablet PO SCH (20:51)
[2021-03-15] MEDS: mineral oil/petrolatum, white cream 113gm jar TP SCH (20:53)
[2021-03-15] MEDS: insulin glargine (Lantus) pen - multi-dose SQ SCH (22:22)
[2021-03-16] VITALS (9 sets, daily range): BP systolic 123–152; BP diastolic 76–86
[2021-03-16] MEDS: pantoprazole 40MG/NS 100ML BAG 100 ML IV SCH ×5 (02:31→22:47)
[2021-03-16] MEDS: ipratropium/albuterol 3ml nebule NEB SCH ×6 (03:56→23:20)
[2021-03-16] MEDS: diltiazem-NS 100mg/100ml 100 ML IV SCH ×2 (05:54→15:02)
--- NOTE | 2021-03-16 06:37 | NUR ---
Problems reprioritized. Patient report given, questions answered & plan of care reviewed with BENJAMÍN WEST.
[2021-03-16] MEDS ORDERED: VANCOMYCIN LEVEL IV ONE (07:30)
[2021-03-16] MEDS: K and/or MAG REPLACEMENT MC SCH ×2 (08:00→20:00)
[2021-03-16] MEDS: mineral oil/petrolatum, white cream 113gm jar TP SCH ×2 (08:00→20:00)
[2021-03-16] MEDS: docusate sod 100mg capsule PO SCH ×3 (08:00→20:00)
[2021-03-16 08:25] LABS: BASOPHILS % (AUTO) 0.1 % (0-1); EOSINOPHILS % (AUTO) 0 % (0-6); HEMATOCRIT 35.2 % (42.0-52.0); LYMPHOCYTES # (AUTO) 0.4 X10'3 (1.1-4.8); LYMPHOCYTES % (AUTO) 6.3 % (21-51); MEAN CORPUSCULAR HEMOGLOBIN 31.3 PG (27.0-31.0); MEAN CORPUSCULAR HGB CONC 34.1 g/dL (33.0-36.5); MEAN CORPUSCULAR VOLUME 91.9 FL (78-98); MEAN PLATELET VOLUME 7.8 FL (7.4-10.4); MONOCYTES # (AUTO) 0.2 X10'3 (0-0.9); MONOCYTES % (AUTO) 3.2 % (2-12); NEUTROPHILS # (AUTO) 6.4 X10'3 (1.8-7.7); NEUTROPHILS % (AUTO) 90.4 % (42-75); PLATELET COUNT 151 X10'3 (140-440); RED BLOOD COUNT 3.83 X10'6 (4.70-6.10); RED CELL DISTRIBUTION WIDTH 17.3 % (11.5-14.5); WHITE BLOOD COUNT 7.1 X10'3 (4.5-11.0)
[2021-03-16 08:40] LABS: ALANINE AMINOTRANSFERASE 29 U/L (12-78); ALBUMIN 2.7 G/DL (3.4-5.0); ALBUMIN/GLOBULIN RATIO 1.2 (1.1-1.5); ALKALINE PHOSPHATASE 56 IU/L (46-116); ANION GAP 10 (8-16); ASPARTATE AMINO TRANSFERASE 18 U/L (10-37); BILIRUBIN,TOTAL 0.9 MG/DL (0.1-1.0); BLOOD UREA NITROGEN 21 MG/DL (7-18); BUN/CREATININE RATIO 38.2 (5.4-32.0); CALCIUM 8.6 MG/DL (8.5-10.1); CHLORIDE 107 MMOL/L (99-107); CREATININE 0.55 MG/DL (0.60-1.10); GLUCOSE 213 MG/DL (70-104); MAGNESIUM 1.9 MG/DL (1.5-2.4); PHOSPHORUS 3.7 MG/DL (2.3-4.5); POTASSIUM 3.4 MMOL/L (3.5-5.1); SODIUM 148 MMOL/L (135-145); TOTAL CARBON DIOXIDE 30.8 MMOL/L (24-32); TOTAL PROTEIN 4.9 G/DL (6.4-8.2); VANCOMYCIN,TROUGH 11.5 UG/ML (6.0-14.0); eGFR > 90 ML/MIN
[2021-03-16] MEDS: methylPREDNISolone sod succ/PF 40mg inj. IV SCH ×2 (08:48→21:57)
[2021-03-16] MEDS: levoTHYROXINE 175mcg tablet PO SCH (08:52)
[2021-03-16] MEDS: carVEDilol 12.5mg tablet PO SCH ×2 (08:53→22:02)
[2021-03-16] MEDS: lisinopril 10 MG tablet PO SCH (08:53)
[2021-03-16] MEDS: furosemide 10 MG/1 ML 10ml inj IV SCH ×2 (08:54→21:59)
[2021-03-16] MEDS: CefTRIAXone/D5W-Rocephin 1gm 50 ML IV SCH (09:14)
[2021-03-16] MEDS: insulin Lispro (HumaLOG) vial - multi-dose SQ SCH ×2 (09:26→14:32)
[2021-03-16] MEDS: normal saline 1000ml 1,000 ML IV SCH ×2 (10:47→17:29)
[2021-03-16] MEDS: vancomycin/NS 1 GM ADD-VANTAGE 250 ML IV SCH ×2 (10:52→22:58)
[2021-03-16] MEDS ORDERED: PEG 3350/Na sulf,bicarb,Cl/KCl oral sol 4 liter bottle PO ONE (16:50)
[2021-03-16] MEDS: potassium Cl 20 mEq SR tablet PO PRN ×2 (17:38→22:24)
[2021-03-16] MEDS: MESSAGE TO NURSING PO NR (18:30)
--- NOTE | 2021-03-16 18:36 | NUR ---
Problems reprioritized. Patient report given, questions answered & plan of care reviewed with Gisell WEST.
[2021-03-16] MEDS: digoxin 125mcg (0.125mg) tablet PO SCH (22:01)
[2021-03-16] MEDS: insulin glargine (Lantus) pen - multi-dose SQ SCH (23:59)
[2021-03-17] VITALS (18 sets, daily range): BP systolic 91–146; BP diastolic 53–114
[2021-03-17] MEDS: diltiazem-NS 100mg/100ml 100 ML IV SCH ×3 (04:10→22:04)
[2021-03-17] MEDS: ipratropium/albuterol 3ml nebule NEB SCH ×6 (04:13→23:11)
[2021-03-17] MEDS: pantoprazole 40MG/NS 100ML BAG 100 ML IV SCH ×5 (06:00→21:17)
[2021-03-17 06:45] LABS: BASOPHILS % (AUTO) 0.1 % (0-1); EOSINOPHILS % (AUTO) 0 % (0-6); HEMATOCRIT 32.3 % (42.0-52.0); HEMOGLOBIN 11.1 g/dl (14.0-17.9); LYMPHOCYTES # (AUTO) 0.3 X10'3 (1.1-4.8); LYMPHOCYTES % (AUTO) 5.7 % (21-51); MEAN CORPUSCULAR HEMOGLOBIN 31.3 PG (27.0-31.0); MEAN CORPUSCULAR HGB CONC 34.4 g/dL (33.0-36.5); MEAN CORPUSCULAR VOLUME 91.1 FL (78-98); MEAN PLATELET VOLUME 7.2 FL (7.4-10.4); MONOCYTES # (AUTO) 0.2 X10'3 (0-0.9); MONOCYTES % (AUTO) 2.8 % (2-12); NEUTROPHILS # (AUTO) 5.3 X10'3 (1.8-7.7); NEUTROPHILS % (AUTO) 91.4 % (42-75); PLATELET COUNT 168 X10'3 (140-440); RED BLOOD COUNT 3.55 X10'6 (4.70-6.10); RED CELL DISTRIBUTION WIDTH 17.2 % (11.5-14.5); WHITE BLOOD COUNT 5.8 X10'3 (4.5-11.0)
[2021-03-17 07:07] LABS: ALANINE AMINOTRANSFERASE 32 U/L (12-78); ALBUMIN 2.7 G/DL (3.4-5.0); ALBUMIN/GLOBULIN RATIO 1.2 (1.1-1.5); ALKALINE PHOSPHATASE 52 IU/L (46-116); ANION GAP 6 (8-16); ASPARTATE AMINO TRANSFERASE 23 U/L (10-37); BILIRUBIN,TOTAL 0.9 MG/DL (0.1-1.0); BLOOD UREA NITROGEN 20 MG/DL (7-18); BUN/CREATININE RATIO 36.4 (5.4-32.0); CALCIUM 8.2 MG/DL (8.5-10.1); CHLORIDE 110 MMOL/L (99-107); CREATININE 0.55 MG/DL (0.60-1.10); GLUCOSE 266 MG/DL (70-104); MAGNESIUM 1.7 MG/DL (1.5-2.4); PHOSPHORUS 3.1 MG/DL (2.3-4.5); SODIUM 152 MMOL/L (135-145); TOTAL CARBON DIOXIDE 36.3 MMOL/L (24-32); eGFR > 90 ML/MIN
[2021-03-17 07:09] LABS: POTASSIUM 2.6 MMOL/L (3.5-5.1)
--- NOTE | 2021-03-17 07:13 | NUR ---
Critical Potassium Message: Dr. Tomas. patient in room 3022B Casey Escobar potassium is 2.6; Will replace per protocol. [facility] PCU Custom Responses:
[2021-03-17] MEDS: CefTRIAXone/D5W-Rocephin 1gm 50 ML IV SCH (07:32)
[2021-03-17] MEDS: methylPREDNISolone sod succ/PF 40mg inj. IV SCH ×2 (07:42→21:18)
[2021-03-17] MEDS: potassium Cl 20 mEq SR tablet PO PRN ×4 (07:44→21:22)
[2021-03-17] MEDS: levoTHYROXINE 175mcg tablet PO SCH (07:45)
[2021-03-17] MEDS: lisinopril 10 MG tablet PO SCH (07:48)
[2021-03-17] MEDS: carVEDilol 12.5mg tablet PO SCH ×2 (07:48→21:23)
[2021-03-17] MEDS: K and/or MAG REPLACEMENT MC SCH ×2 (07:50→20:00)
[2021-03-17] MEDS: docusate sod 100mg capsule PO SCH ×3 (08:00→20:00)
[2021-03-17] MEDS ORDERED: VANCOMYCIN 1GM/200ML IVPB 200 ML IV SCH (08:00)
[2021-03-17] MEDS: mineral oil/petrolatum, white cream 113gm jar TP SCH ×2 (08:00→20:00)
[2021-03-17] MEDS: VANCOmycin 1250MG/NS 250ml Bag 250 ML IV SCH ×2 (08:58→21:17)
[2021-03-17] MEDS: insulin Lispro (HumaLOG) vial - multi-dose SQ SCH (10:01)
[2021-03-17] MEDS: MESSAGE TO NURSING PO NR (10:05)
--- NOTE | 2021-03-17 11:01 | NUR ---
lasix given late lasix given late due to potassium being 2.6. given no with second dose of potassium 40meq Mayr U
[2021-03-17] MEDS: furosemide 10 MG/1 ML 10ml inj IV SCH ×2 (11:13→21:19)
[2021-03-17] MEDS ORDERED: MIDAZolam 1 MG/ML 5ML VIAL ONE (12:26)
[2021-03-17] MEDS ORDERED: fentaNYL/PF 50MCG/1 ML 2ML syringe ONE (12:26)
--- NOTE | 2021-03-17 18:37 | NUR ---
Problems reprioritized. Patient report given, questions answered & plan of care reviewed with Gisell.
--- NOTE | 2021-03-17 18:40 | NUR ---
Patient in room PCU 3026. I have received report from BRETT Crawford and had the opportunity to ask questions and assume patient care.
[2021-03-17] MEDS ORDERED: potassium Cl 20 mEq SR tablet PO PRN (20:40)
[2021-03-17] MEDS ORDERED: magnesium Cl slow-release 64mg tablet PO PRN (20:40)
[2021-03-17] MEDS: digoxin 125mcg (0.125mg) tablet PO SCH (21:25)
[2021-03-17] MEDS: insulin glargine (Lantus) pen - multi-dose SQ SCH (22:29)
[2021-03-18] VITALS (12 sets, daily range): BP systolic 89–153; BP diastolic 63–91
[2021-03-18] MEDS: ipratropium/albuterol 3ml nebule NEB SCH ×6 (02:48→23:27)
--- NOTE | 2021-03-18 06:30 | NUR ---
Problems reprioritized. Patient report given, questions answered & plan of care reviewed with BRETT Baldwin.
[2021-03-18] MEDS: K and/or MAG REPLACEMENT MC SCH ×2 (08:00→20:00)
[2021-03-18] MEDS: docusate sod 100mg capsule PO SCH ×3 (08:00→20:42)
[2021-03-18] MEDS: CefTRIAXone/D5W-Rocephin 1gm 50 ML IV SCH (08:04)
[2021-03-18] MEDS: methylPREDNISolone sod succ/PF 40mg inj. IV SCH ×2 (08:05→20:41)
[2021-03-18] MEDS: VANCOmycin 1250MG/NS 250ml Bag 250 ML IV SCH (08:05)
[2021-03-18] MEDS: furosemide 10 MG/1 ML 10ml inj IV SCH (08:06)
[2021-03-18] MEDS: pantoprazole 40mg Tablet.DR PO SCH (08:17)
[2021-03-18] MEDS: carVEDilol 12.5mg tablet PO SCH ×2 (08:17→20:41)
[2021-03-18] MEDS: levoTHYROXINE 175mcg tablet PO SCH (08:18)
[2021-03-18] MEDS: lisinopril 10 MG tablet PO SCH (08:18)
[2021-03-18] MEDS: mineral oil/petrolatum, white cream 113gm jar TP SCH ×2 (08:19→20:42)
[2021-03-18] MEDS: insulin Lispro (HumaLOG) vial - multi-dose SQ SCH ×2 (09:32→13:15)
[2021-03-18] MEDS: diltiazem-NS 100mg/100ml 100 ML IV SCH ×2 (09:35→20:40)
[2021-03-18 09:36] LABS: BASOPHILS % (AUTO) 0.1 % (0-1); EOSINOPHILS % (AUTO) 0 % (0-6); HEMATOCRIT 34.8 % (42.0-52.0); HEMOGLOBIN 12.1 g/dl (14.0-17.9); LYMPHOCYTES # (AUTO) 0.3 X10'3 (1.1-4.8); LYMPHOCYTES % (AUTO) 4.4 % (21-51); MEAN CORPUSCULAR HEMOGLOBIN 31.7 PG (27.0-31.0); MEAN CORPUSCULAR HGB CONC 34.8 g/dL (33.0-36.5); MEAN CORPUSCULAR VOLUME 91.1 FL (78-98); MEAN PLATELET VOLUME 6.9 FL (7.4-10.4); MONOCYTES # (AUTO) 0.2 X10'3 (0-0.9); MONOCYTES % (AUTO) 2.8 % (2-12); NEUTROPHILS # (AUTO) 6.9 X10'3 (1.8-7.7); NEUTROPHILS % (AUTO) 92.7 % (42-75); PLATELET COUNT 198 X10'3 (140-440); RED BLOOD COUNT 3.82 X10'6 (4.70-6.10); RED CELL DISTRIBUTION WIDTH 17.1 % (11.5-14.5); WHITE BLOOD COUNT 7.5 X10'3 (4.5-11.0)
[2021-03-18 10:17] LABS: ALANINE AMINOTRANSFERASE 39 U/L (12-78); ALBUMIN/GLOBULIN RATIO 1.2 (1.1-1.5); ALKALINE PHOSPHATASE 59 IU/L (46-116); ANION GAP 5 (8-16); ASPARTATE AMINO TRANSFERASE 20 U/L (10-37); BILIRUBIN,TOTAL 1.1 MG/DL (0.1-1.0); BLOOD UREA NITROGEN 14 MG/DL (7-18); CALCIUM 8.9 MG/DL (8.5-10.1); CHLORIDE 105 MMOL/L (99-107); CREATININE 0.61 MG/DL (0.60-1.10); GLUCOSE 240 MG/DL (70-104); MAGNESIUM 1.8 MG/DL (1.5-2.4); PHOSPHORUS 2.7 MG/DL (2.3-4.5); SODIUM 147 MMOL/L (135-145); TOTAL CARBON DIOXIDE 37.5 MMOL/L (24-32); TOTAL PROTEIN 5.5 G/DL (6.4-8.2); eGFR > 90 ML/MIN
--- NOTE | 2021-03-18 10:19 | NUR ---
Patient repeatedly asked for the urinal and was voiding small amounts. After voiding 150cc, bladder scan showed over 860cc.
[2021-03-18 10:20] LABS: POTASSIUM 2.8 MMOL/L (3.5-5.1)
--- NOTE | 2021-03-18 10:25 | NUR ---
Page to Dr. Tomas Message: [id number] Escobar Peña- Bladder scanner showed >860cc. Unable to void full amount. Potassium 2.8- will replace per protocol. Erica [id number]
[2021-03-18] MEDS: potassium Cl 20 mEq SR tablet PO PRN ×2 (10:29→14:42)
--- NOTE | 2021-03-18 13:44 | NUR ---
Initial: Pt admitted w/ encephalopathy, GI, bleed, and COPD exacerbation per EMR. CT scan showed severe diverticulosis w/ blood adherent to the colon though no active bleeding. Per documentation there does not seem to be any blood in stools today. 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 Pt has consumed mostly 100% of Clear liquid meals though not meeting needs d/t restrictive diet. Recommend advancing to Regular diet as medically indicated. LBM 03/17. Limited nutrition interventions at this time given diet order, will continue to monitor. Recs: 1. Advance diet as tolerated to Regular/MM5/NTL per DIRECTOR OF MARKET ANALYSIS recs; lipid panel WNL 2. Monitor need for ONS upon diet advancement 3. Bowel care per MD 4. Scaled wt this admit, subsequent weekly wts Addendum: 03/18/21 at [address] Amended: Links added.
--- NOTE | 2021-03-18 14:33 | NUR ---
Page to Dr. Tomas [id number] Monterichard- Pt still not voided successfully. 910cc showed in bladder scan. OK to place orozco? Erica [phone] Dr. Tomas called back and states to place orozco per protocol.
[2021-03-18] MEDS ORDERED: LIDOcaine 2% 10ml TOPICAL JELLY (Urojet) TP ONE (14:35)
--- NOTE | 2021-03-18 15:00 | NUR ---
Cameron catheter inserted. 1000cc urine out
--- NOTE | 2021-03-18 18:33 | NUR ---
Problems reprioritized. Patient report given, questions answered & plan of care reviewed with Nydia WEST.
[2021-03-18] MEDS ORDERED: VANCOMYCIN LEVEL IV ONE (19:30)
[2021-03-18] MEDS: digoxin 125mcg (0.125mg) tablet PO SCH (20:37)
[2021-03-18] MEDS: lactobacillus rhamnosus 10,000 MMU CELLS/CAPSULE PO SCH (20:42)
[2021-03-18] MEDS: insulin glargine (Lantus) pen - multi-dose SQ SCH (21:00)
--- NOTE | 2021-03-18 21:21 | NUR ---
UNABLE TO OBTAIN BLOOD DRAW ON PATIENT, LAB AND MULTIPLE NURSES HAVE TRIED TO OBTAIN AND WERE UNSUCCESSFUL. PATIENT BECAME AGITATED.
--- NOTE | 2021-03-18 21:26 | NUR ---
UABLE TO GET VANC TROUGH AND K+ LEVEL RELATED TO UNSUCCESSFUL VENIPUNCTURE. ATTEMPTED X 4 NURSES AND LAB. UNABLE TO START VANCOMYCIN AND GIVE LASIX.
--- NOTE | 2021-03-18 23:22 | NUR ---
IGNITION SPECIALIST NURSE MADE AWARE OF UNSUCCESSFUL VENIPUNCTURE.
[2021-03-19] VITALS (10 sets, daily range): BP systolic 113–146; BP diastolic 69–89
[2021-03-19] MEDS: ipratropium/albuterol 3ml nebule NEB SCH ×5 (02:38→19:49)
[2021-03-19 05:58] LABS: BASOPHILS % (AUTO) 0.1 % (0-1); EOSINOPHILS % (AUTO) 0 % (0-6); HEMATOCRIT 30.6 % (42.0-52.0); HEMOGLOBIN 10.5 g/dl (14.0-17.9); LYMPHOCYTES # (AUTO) 0.2 X10'3 (1.1-4.8); MEAN CORPUSCULAR HEMOGLOBIN 31.6 PG (27.0-31.0); MEAN CORPUSCULAR HGB CONC 34.5 g/dL (33.0-36.5); MEAN CORPUSCULAR VOLUME 91.6 FL (78-98); MEAN PLATELET VOLUME 7.1 FL (7.4-10.4); MONOCYTES # (AUTO) 0.2 X10'3 (0-0.9); MONOCYTES % (AUTO) 3.3 % (2-12); NEUTROPHILS # (AUTO) 4.6 X10'3 (1.8-7.7); NEUTROPHILS % (AUTO) 91.6 % (42-75); PLATELET COUNT 157 X10'3 (140-440); RED BLOOD COUNT 3.34 X10'6 (4.70-6.10); RED CELL DISTRIBUTION WIDTH 17.2 % (11.5-14.5)
[2021-03-19 06:04] LABS: ALANINE AMINOTRANSFERASE 30 U/L (12-78); ALBUMIN 2.4 G/DL (3.4-5.0); ALBUMIN/GLOBULIN RATIO 1.2 (1.1-1.5); ALKALINE PHOSPHATASE 50 IU/L (46-116); ANION GAP 4 (8-16); ASPARTATE AMINO TRANSFERASE 18 U/L (10-37); BILIRUBIN,TOTAL 0.8 MG/DL (0.1-1.0); BLOOD UREA NITROGEN 12 MG/DL (7-18); BUN/CREATININE RATIO 32.4 (5.4-32.0); CALCIUM 8.5 MG/DL (8.5-10.1); CHLORIDE 107 MMOL/L (99-107); CREATININE 0.37 MG/DL (0.60-1.10); GLUCOSE 181 MG/DL (70-104); PHOSPHORUS 2.7 MG/DL (2.3-4.5); SODIUM 146 MMOL/L (135-145); TOTAL CARBON DIOXIDE 35.2 MMOL/L (24-32); TOTAL PROTEIN 4.4 G/DL (6.4-8.2); eGFR > 90 ML/MIN
[2021-03-19 06:07] LABS: POTASSIUM 2.8 MMOL/L (3.5-5.1)
[2021-03-19] MEDS: diltiazem-NS 100mg/100ml 100 ML IV SCH ×2 (07:06→18:16)
--- NOTE | 2021-03-19 07:11 | NUR ---
Page to Dr. Tomas [id number] Escobar Peña- Hossein 2.8. Will replace per protocol. Erica [phone]
[2021-03-19] MEDS: potassium Cl 20 mEq SR tablet PO PRN ×3 (07:47→20:19)
[2021-03-19] MEDS: VANCOmycin 1250MG/NS 250ml Bag 250 ML IV SCH ×3 (07:48→20:39)
[2021-03-19] MEDS: CefTRIAXone/D5W-Rocephin 1gm 50 ML IV SCH (07:49)
[2021-03-19] MEDS: lactobacillus rhamnosus 10,000 MMU CELLS/CAPSULE PO SCH ×2 (07:51→20:13)
[2021-03-19] MEDS: pantoprazole 40mg Tablet.DR PO SCH (07:51)
[2021-03-19] MEDS: lisinopril 10 MG tablet PO SCH (07:51)
[2021-03-19] MEDS: levoTHYROXINE 175mcg tablet PO SCH (07:51)
[2021-03-19] MEDS: methylPREDNISolone sod succ/PF 40mg inj. IV SCH ×2 (07:51→20:14)
[2021-03-19] MEDS: furosemide 10 MG/1 ML 10ml inj IV SCH ×3 (07:52→20:14)
[2021-03-19] MEDS: carVEDilol 12.5mg tablet PO SCH ×2 (07:52→20:14)
[2021-03-19] MEDS: K and/or MAG REPLACEMENT MC SCH ×2 (08:00→20:27)
[2021-03-19] MEDS: mineral oil/petrolatum, white cream 113gm jar TP SCH ×2 (08:00→20:00)
[2021-03-19] MEDS: docusate sod 100mg capsule PO SCH ×3 (08:00→20:13)
[2021-03-19] MEDS: insulin Lispro (HumaLOG) vial - multi-dose SQ SCH ×2 (08:09→14:14)
--- NOTE | 2021-03-19 14:32 | NUR ---
WOUND INFECTION EDUCATION PROVIDED BY WOUND CARE 1. Patient instructed to call their primary doctor, or go the ED immediately if any of the following symptoms occur: * Increased pain in wound * Increase in drainage from the wound * Redness in the skin surrounding the wound * Warmth in the skin surrounding the wound * Bleeding from the wound * Temperature of 101 or greater 2. If any of these occur while in the hospital tell a nurse immediately. PRESSURE ULCER EDUCATION: DEFINITION: A pressure ulcer is an area of skin that breaks down when you stay in one position too long. The constant pressure against the skin reduces the blood flow to that area and the affected tissue dies. CAUSES: "Being bedridden or in a wheelchair "Fragile skin "Having a chronic condition, such as diabetes or vascular disease "Inability to move certain parts of your body without assistance "Older age "Incontinence of urine or stool SYMPTOMS: "A reddened area that DOES NOT turn white when pressed on - this can be the beginning of a pressure ulcer "A blister, deep sore or a crater - these can be advanced pressure ulcers FIRST AID: "Relieve the pressure on this area "Keep the area clean and dry "Call your primary doctor if you see any of the above symptoms "DO NOT massage the area "DO NOT use a donut shaped or ring shaped pillow- these actually interfere with the blood flow and cause complications PREVENTION: "Check for pressure ulcers everyday "Change position at least every two hours to relieve pressure "Use items that help relieve pressure- pillows, sheepskin, foam padding, and powders. "Keep skin clean and dry "Eat healthy well balanced meals "Exercise daily IF YOU SEE ANY OF THESE SYMPTOMS WHILE IN THE HOSPITAL - TELL YOUR NURSE IMMEDIATELY. IF YOU SEE ANY OF THESE SYMPTOMS WHILE AT HOME OR HAVE ANY QUESTIONS OR CONCERNS ABOUT PRESSURE ULCERS - CALL YOUR PRIMARY DOCTOR IMMEDIATELY. Addendum: 03/19/21 at 1432 by Kenisha Cooper RN Amended: Links added.
--- NOTE | 2021-03-19 18:20 | NUR ---
Problems reprioritized. Patient report given, questions answered & plan of care reviewed with Vandana WEST.
[2021-03-19] MEDS: digoxin 125mcg (0.125mg) tablet PO SCH (20:14)
[2021-03-19] MEDS: insulin glargine (Lantus) pen - multi-dose SQ SCH (22:06)
[2021-03-20] VITALS (7 sets, daily range): BP systolic 94–161; BP diastolic 57–94
[2021-03-20] MEDS: ipratropium/albuterol 3ml nebule NEB SCH ×7 (00:01→23:39)
--- NOTE | 2021-03-20 05:33 | NUR ---
patient refused labs.
[2021-03-20] MEDS: docusate sod 100mg capsule PO SCH ×3 (08:00→19:14)
[2021-03-20] MEDS: K and/or MAG REPLACEMENT MC SCH ×2 (08:00→19:14)
[2021-03-20] MEDS: mineral oil/petrolatum, white cream 113gm jar TP SCH ×2 (08:00→19:21)
[2021-03-20] MEDS ORDERED: metoprolol tartrate 25mg tablet PO SCH (08:00)
[2021-03-20] MEDS: pantoprazole 40mg Tablet.DR PO SCH (09:44)
[2021-03-20] MEDS: furosemide 40mg/4ml inj IV SCH ×2 (09:45→19:21)
[2021-03-20] MEDS: lactobacillus rhamnosus 10,000 MMU CELLS/CAPSULE PO SCH ×2 (09:46→19:13)
[2021-03-20] MEDS: carVEDilol 12.5mg tablet PO SCH ×2 (09:46→19:21)
[2021-03-20] MEDS: levoTHYROXINE 175mcg tablet PO SCH (09:48)
[2021-03-20] MEDS: lisinopril 10 MG tablet PO SCH (09:50)
[2021-03-20] MEDS: methylPREDNISolone sod succ/PF 40mg inj. IV SCH (09:53)
[2021-03-20] MEDS: VANCOmycin 1250MG/NS 250ml Bag 250 ML IV SCH ×2 (09:54→20:00)
[2021-03-20] MEDS: CefTRIAXone/D5W-Rocephin 1gm 50 ML IV SCH (10:11)
[2021-03-20 10:31] LABS: BASOPHILS % (AUTO) 0.1 % (0-1); EOSINOPHILS % (AUTO) 0 % (0-6); HEMOGLOBIN 12.2 g/dl (14.0-17.9); LYMPHOCYTES # (AUTO) 0.3 X10'3 (1.1-4.8); LYMPHOCYTES % (AUTO) 3.5 % (21-51); MEAN CORPUSCULAR HEMOGLOBIN 31.1 PG (27.0-31.0); MEAN CORPUSCULAR HGB CONC 33.9 g/dL (33.0-36.5); MEAN CORPUSCULAR VOLUME 91.5 FL (78-98); MEAN PLATELET VOLUME 6.9 FL (7.4-10.4); MONOCYTES # (AUTO) 0.3 X10'3 (0-0.9); MONOCYTES % (AUTO) 3.5 % (2-12); NEUTROPHILS # (AUTO) 6.8 X10'3 (1.8-7.7); NEUTROPHILS % (AUTO) 92.9 % (42-75); PLATELET COUNT 225 X10'3 (140-440); RED BLOOD COUNT 3.94 X10'6 (4.70-6.10); RED CELL DISTRIBUTION WIDTH 17.3 % (11.5-14.5); WHITE BLOOD COUNT 7.3 X10'3 (4.5-11.0)
[2021-03-20 10:39] LABS: ALBUMIN 2.8 G/DL (3.4-5.0); ANION GAP 1 (8-16); BLOOD UREA NITROGEN 12 MG/DL (7-18); BUN/CREATININE RATIO 22.6 (5.4-32.0); CALCIUM 8.7 MG/DL (8.5-10.1); CHLORIDE 105 MMOL/L (99-107); CREATININE 0.53 MG/DL (0.60-1.10); GLUCOSE 185 MG/DL (70-104); POTASSIUM 3.1 MMOL/L (3.5-5.1); SODIUM 147 MMOL/L (135-145); eGFR > 90 ML/MIN
[2021-03-20 10:56] LABS: TOTAL CARBON DIOXIDE 40.6 MMOL/L (24-32)
--- NOTE | 2021-03-20 11:09 | NUR ---
Reassessment: Pt remains on Clear liquid/NTL diet w/ mostly 100% of meals though not meeting nutritional needs. D/w RN regarding advancing diet back to MM5/NTL per original recs as clear liquid diet not nutritionally adequate. There are no more signs of rectal bleeding per MD note. Given inadequate intake for 6 days, severe muscle weakness, and BLE 4+ edema, pt meets minimum criteria for malnutrition, MD notified. LBM 03/18 receiving routine colace. Will continue to monitor. Recs: 1. Advance diet as tolerated to Regular/MM5/NTL per GEAR KEEPER recs; lipid panel WNL 2. Monitor need for ONS upon diet advancement 3. Bowel care per MD 4. Scaled wt this admit, subsequent weekly wts Addendum: 03/20/21 at [address] Amended: Links added.
--- NOTE | 2021-03-20 11:28 | NUR ---
Pt CO2 40.6 Results paged to ,Asked about dietary advancement to meet pt nutritional needs per request of Board Saw Runner Addendum: 03/20/21 at 1131 by Queta Sanchez RN Awaiting return orders or call.
--- NOTE | 2021-03-20 15:29 | NUR ---
Message to Dr. Tomas concerning low blood pressure. Message: [id number] Escobar Peña Blood pressure is low on recheck, 84/57 (68), heart rate 90. Pt is on Cardizem drip at 10ml/hr. Please advise. Thanks, Queta RN PCU ext [phone] Custom Responses:
[2021-03-20] MEDS: insulin Lispro (HumaLOG) vial - multi-dose SQ SCH ×2 (18:44→22:02)
[2021-03-20] MEDS: digoxin 125mcg (0.125mg) tablet PO SCH (19:13)
[2021-03-20] MEDS: potassium Cl 20 mEq SR tablet PO PRN (19:15)
[2021-03-20] MEDS ORDERED: VANCOMYCIN LEVEL IV ONE (19:30)
--- NOTE | 2021-03-20 21:46 | NUR ---
CALLED DR STEINBERG FOR Coby TRUJILLO 23.6 ORDER GIVEN TO HOLD DOSE
[2021-03-20] MEDS: insulin glargine (Lantus) pen - multi-dose SQ SCH (21:58)
[2021-03-21 02:00] VITALS: BP 141/71
[2021-03-21] MEDS: ipratropium/albuterol 3ml nebule NEB SCH ×6 (03:19→23:25)
[2021-03-21] MEDS ORDERED: magnesium 4gm in 100ml NS 100 ML IV PRN (04:20)
[2021-03-21] MEDS ORDERED: potassium CL 10mEq/100ml bag 100 ML IV PRN (04:20)
[2021-03-21] MEDS ORDERED: magnesium Cl slow-release 64mg tablet PO PRN (04:20)
[2021-03-21 06:00] VITALS: BP 139/89
[2021-03-21 07:11] LABS: BASOPHILS % (AUTO) 0.1 % (0-1); EOSINOPHILS % (AUTO) 0 % (0-6); HEMATOCRIT 34.2 % (42.0-52.0); HEMOGLOBIN 11.8 g/dl (14.0-17.9); LYMPHOCYTES # (AUTO) 0.4 X10'3 (1.1-4.8); LYMPHOCYTES % (AUTO) 5.7 % (21-51); MEAN CORPUSCULAR HEMOGLOBIN 31.6 PG (27.0-31.0); MEAN CORPUSCULAR HGB CONC 34.6 g/dL (33.0-36.5); MEAN CORPUSCULAR VOLUME 91.4 FL (78-98); MONOCYTES # (AUTO) 0.2 X10'3 (0-0.9); MONOCYTES % (AUTO) 3.6 % (2-12); NEUTROPHILS # (AUTO) 5.9 X10'3 (1.8-7.7); NEUTROPHILS % (AUTO) 90.6 % (42-75); PLATELET COUNT 184 X10'3 (140-440); RED BLOOD COUNT 3.74 X10'6 (4.70-6.10); RED CELL DISTRIBUTION WIDTH 17.2 % (11.5-14.5); WHITE BLOOD COUNT 6.5 X10'3 (4.5-11.0)
[2021-03-21 07:18] LABS: ALANINE AMINOTRANSFERASE 26 U/L (12-78); ALBUMIN 2.4 G/DL (3.4-5.0); ALKALINE PHOSPHATASE 55 IU/L (46-116); ANION GAP 1 (8-16); ASPARTATE AMINO TRANSFERASE 17 U/L (10-37); BILIRUBIN,TOTAL 0.9 MG/DL (0.1-1.0); BLOOD UREA NITROGEN 17 MG/DL (7-18); CALCIUM 8.7 MG/DL (8.5-10.1); CHLORIDE 106 MMOL/L (99-107); CREATININE 0.46 MG/DL (0.60-1.10); GLUCOSE 173 MG/DL (70-104); MAGNESIUM 1.8 MG/DL (1.5-2.4); PHOSPHORUS 2.4 MG/DL (2.3-4.5); SODIUM 146 MMOL/L (135-145); TOTAL CARBON DIOXIDE 38.7 MMOL/L (24-32); TOTAL PROTEIN 4.8 G/DL (6.4-8.2); eGFR > 90 ML/MIN
[2021-03-21] MEDS: potassium Cl 20 mEq SR tablet PO PRN ×3 (08:00→16:59)
[2021-03-21] MEDS: K and/or MAG REPLACEMENT MC SCH ×2 (08:00→20:00)
[2021-03-21] MEDS: pantoprazole 40mg Tablet.DR PO SCH (08:01)
[2021-03-21] MEDS: levoTHYROXINE 175mcg tablet PO SCH (08:01)
[2021-03-21] MEDS: furosemide 40mg/4ml inj IV SCH ×2 (08:02→19:42)
[2021-03-21] MEDS: methylPREDNISolone sod succ/PF 40mg inj. IV SCH (08:02)
[2021-03-21] MEDS: lactobacillus rhamnosus 10,000 MMU CELLS/CAPSULE PO SCH ×2 (08:59→19:41)
[2021-03-21] MEDS: CefTRIAXone/D5W-Rocephin 1gm 50 ML IV SCH (08:59)
[2021-03-21] MEDS: insulin Lispro (HumaLOG) vial - multi-dose SQ SCH ×2 (08:59→13:23)
[2021-03-21] MEDS: docusate sod 100mg capsule PO SCH ×3 (09:00→19:41)
[2021-03-21] MEDS: mineral oil/petrolatum, white cream 113gm jar TP SCH ×2 (09:01→19:43)
[2021-03-21] MEDS: carVEDilol 12.5mg tablet PO SCH ×2 (09:01→19:41)
[2021-03-21 10:04] LABS: ANISOCYTOSIS 1+; HYPERSEGMENTED NEUTROPHILS FEW; PLATELET ESTIMATE NORMAL; SMUDGE CELLS FEW; TOTAL CELLS COUNTED 100
[2021-03-21 10:06] LABS: POLYCHROMASIA FEW; TOXIC VACUOLATION FEW
[2021-03-21 11:00] VITALS: BP 134/93
[2021-03-21] MEDS: lisinopril 10 MG tablet PO SCH (11:54)
[2021-03-21] MEDS: VANCOMYCIN 1GM/200ML IVPB 200 ML IV SCH ×2 (11:55→19:42)
--- NOTE | 2021-03-21 14:57 | NUR ---
1500 svn missed-pt. having bone scan
[2021-03-21 16:00] VITALS: BP 115/76
[2021-03-21 19:36] VITALS: BP 150/83
[2021-03-21] MEDS: digoxin 125mcg (0.125mg) tablet PO SCH (19:46)
[2021-03-21] MEDS: insulin glargine (Lantus) pen - multi-dose SQ SCH (21:14)
[2021-03-21 22:00] VITALS: BP 140/77
[2021-03-22 02:00] VITALS: BP 150/71
[2021-03-22] MEDS: ipratropium/albuterol 3ml nebule NEB SCH ×6 (03:18→23:40)
[2021-03-22 06:00] VITALS: BP 150/95
--- NOTE | 2021-03-22 06:25 | NUR ---
Patient in room PCU 3026. I have received report from Aide and had the opportunity to ask questions and assume patient care.
[2021-03-22] MEDS: docusate sod 100mg capsule PO SCH ×3 (07:38→19:36)
[2021-03-22] MEDS: lactobacillus rhamnosus 10,000 MMU CELLS/CAPSULE PO SCH ×2 (07:39→20:06)
[2021-03-22] MEDS: pantoprazole 40mg Tablet.DR PO SCH (07:39)
[2021-03-22] MEDS: carVEDilol 12.5mg tablet PO SCH ×2 (07:39→19:40)
[2021-03-22] MEDS: levoTHYROXINE 175mcg tablet PO SCH (07:39)
[2021-03-22] MEDS: methylPREDNISolone sod succ/PF 40mg inj. IV SCH (07:40)
[2021-03-22] MEDS: CefTRIAXone/D5W-Rocephin 1gm 50 ML IV SCH (07:41)
[2021-03-22] MEDS: mineral oil/petrolatum, white cream 113gm jar TP SCH ×2 (07:41→19:52)
[2021-03-22] MEDS: lisinopril 10 MG tablet PO SCH (07:41)
[2021-03-22] MEDS: K and/or MAG REPLACEMENT MC SCH ×2 (08:00→19:36)
[2021-03-22 08:58] LABS: BASOPHILS % (AUTO) 0.1 % (0-1); EOSINOPHILS % (AUTO) 0.1 % (0-6); HEMATOCRIT 36.9 % (42.0-52.0); HEMOGLOBIN 12.5 g/dl (14.0-17.9); LYMPHOCYTES # (AUTO) 0.4 X10'3 (1.1-4.8); MEAN CORPUSCULAR HEMOGLOBIN 31.3 PG (27.0-31.0); MONOCYTES # (AUTO) 0.3 X10'3 (0-0.9); MONOCYTES % (AUTO) 4.2 % (2-12); NEUTROPHILS # (AUTO) 5.6 X10'3 (1.8-7.7); NEUTROPHILS % (AUTO) 88.6 % (42-75); PLATELET COUNT 197 X10'3 (140-440); RED BLOOD COUNT 4.01 X10'6 (4.70-6.10); WHITE BLOOD COUNT 6.4 X10'3 (4.5-11.0)
[2021-03-22] MEDS: furosemide 40mg/4ml inj IV SCH ×2 (09:14→19:25)
[2021-03-22] MEDS: VANCOMYCIN 1GM/200ML IVPB 200 ML IV SCH ×2 (09:51→20:00)
[2021-03-22 11:00] VITALS: BP 120/84
[2021-03-22 11:20] LABS: ALANINE AMINOTRANSFERASE 31 U/L (12-78); ALBUMIN 2.6 G/DL (3.4-5.0); ALBUMIN/GLOBULIN RATIO 1.1 (1.1-1.5); ALKALINE PHOSPHATASE 61 IU/L (46-116); ANION GAP 7 (8-16); ASPARTATE AMINO TRANSFERASE 22 U/L (10-37); BLOOD UREA NITROGEN 13 MG/DL (7-18); BUN/CREATININE RATIO 25.5 (5.4-32.0); CALCIUM 8.8 MG/DL (8.5-10.1); CHLORIDE 103 MMOL/L (99-107); CREATININE 0.51 MG/DL (0.60-1.10); GLUCOSE 149 MG/DL (70-104); MAGNESIUM 2.1 MG/DL (1.5-2.4); PHOSPHORUS 2.7 MG/DL (2.3-4.5); POTASSIUM 4.1 MMOL/L (3.5-5.1); SODIUM 146 MMOL/L (135-145); TOTAL CARBON DIOXIDE 36.3 MMOL/L (24-32); TOTAL PROTEIN 4.9 G/DL (6.4-8.2); eGFR > 90 ML/MIN
[2021-03-22] MEDS: insulin Lispro (HumaLOG) vial - multi-dose SQ SCH ×2 (14:18→19:49)
[2021-03-22 15:00] VITALS: BP 160/73
[2021-03-22] MEDS ORDERED: ringers solution, lacted 1,000 ML IV ONE (16:30)
[2021-03-22] MEDS ORDERED: ipratropium/albuterol 3ml nebule NEB SCH (16:30)
[2021-03-22 18:00] VITALS: BP 114/72
[2021-03-22] MEDS ORDERED: VANCOMYCIN LEVEL IV ONE (19:30)
[2021-03-22] MEDS: digoxin 125mcg (0.125mg) tablet PO SCH (20:07)
[2021-03-22] MEDS: insulin glargine (Lantus) pen - multi-dose SQ SCH (21:00)
[2021-03-22 22:00] VITALS: BP 128/79
[2021-03-23 02:00] VITALS: BP 130/84
[2021-03-23] MEDS: ipratropium/albuterol 3ml nebule NEB SCH ×6 (03:36→23:24)
[2021-03-23] MEDS ORDERED: famotidine/PF 10 mg/ml inj IV ONE (06:00)
[2021-03-23 07:00] VITALS: BP 152/96
[2021-03-23] MEDS: methylPREDNISolone sod succ/PF 40mg inj. IV SCH (07:31)
[2021-03-23] MEDS: furosemide 40mg/4ml inj IV SCH ×2 (07:31→21:15)
[2021-03-23] MEDS: lisinopril 10 MG tablet PO SCH (07:31)
[2021-03-23] MEDS: lactobacillus rhamnosus 10,000 MMU CELLS/CAPSULE PO SCH ×2 (07:31→21:08)
[2021-03-23] MEDS: pantoprazole 40mg Tablet.DR PO SCH (07:31)
[2021-03-23] MEDS: levoTHYROXINE 175mcg tablet PO SCH (07:32)
[2021-03-23] MEDS: docusate sod 100mg capsule PO SCH ×3 (07:32→21:08)
[2021-03-23] MEDS: carVEDilol 12.5mg tablet PO SCH ×2 (07:33→21:16)
[2021-03-23] MEDS: mineral oil/petrolatum, white cream 113gm jar TP SCH ×2 (07:35→21:10)
[2021-03-23] MEDS: K and/or MAG REPLACEMENT MC SCH ×2 (08:00→20:00)
[2021-03-23] MEDS: VANCOMYCIN 750MG IV in NS 250 ML IV SCH ×2 (08:21→21:43)
[2021-03-23 09:22] LABS: BASOPHILS % (AUTO) 0.2 % (0-1); EOSINOPHILS % (AUTO) 0.3 % (0-6); HEMATOCRIT 39.5 % (42.0-52.0); HEMOGLOBIN 13.5 g/dl (14.0-17.9); LYMPHOCYTES # (AUTO) 0.6 X10'3 (1.1-4.8); LYMPHOCYTES % (AUTO) 8.3 % (21-51); MEAN CORPUSCULAR HEMOGLOBIN 31.3 PG (27.0-31.0); MEAN CORPUSCULAR HGB CONC 34.2 g/dL (33.0-36.5); MEAN CORPUSCULAR VOLUME 91.7 FL (78-98); MEAN PLATELET VOLUME 7.1 FL (7.4-10.4); MONOCYTES # (AUTO) 0.3 X10'3 (0-0.9); MONOCYTES % (AUTO) 3.9 % (2-12); NEUTROPHILS # (AUTO) 6.7 X10'3 (1.8-7.7); NEUTROPHILS % (AUTO) 87.3 % (42-75); PLATELET COUNT 211 X10'3 (140-440); RED BLOOD COUNT 4.31 X10'6 (4.70-6.10); RED CELL DISTRIBUTION WIDTH 17.8 % (11.5-14.5); WHITE BLOOD COUNT 7.7 X10'3 (4.5-11.0)
[2021-03-23 09:35] LABS: ALANINE AMINOTRANSFERASE 32 U/L (12-78); ALBUMIN 2.5 G/DL (3.4-5.0); ALKALINE PHOSPHATASE 71 IU/L (46-116); ANION GAP 5 (8-16); ASPARTATE AMINO TRANSFERASE 23 U/L (10-37); BILIRUBIN,TOTAL 1.2 MG/DL (0.1-1.0); BLOOD UREA NITROGEN 12 MG/DL (7-18); BUN/CREATININE RATIO 22.2 (5.4-32.0); CALCIUM 8.6 MG/DL (8.5-10.1); CHLORIDE 103 MMOL/L (99-107); CREATININE 0.54 MG/DL (0.60-1.10); GLUCOSE 98 MG/DL (70-104); MAGNESIUM 2.1 MG/DL (1.5-2.4); PHOSPHORUS 2.4 MG/DL (2.3-4.5); POTASSIUM 3.1 MMOL/L (3.5-5.1); SODIUM 144 MMOL/L (135-145); TOTAL CARBON DIOXIDE 35.6 MMOL/L (24-32); TOTAL PROTEIN 4.9 G/DL (6.4-8.2); eGFR > 90 ML/MIN
[2021-03-23] MEDS: potassium Cl 20 mEq SR tablet PO PRN ×3 (10:30→21:07)
--- NOTE | 2021-03-23 10:48 | NUR ---
Pt refusing svn. Pt states "don't touch with me with nothing, that's got to sink in somewhere in that skull of yours", however this is my first interaction with him today. When asked if he wants his breathing treatment, he states "no i do not, what don't you understand? I don't want anything from [facility]". RN is also aware
[2021-03-23 11:00] VITALS: BP 135/87
[2021-03-23] MEDS: insulin Lispro (HumaLOG) vial - multi-dose SQ SCH (13:33)
--- NOTE | 2021-03-23 13:57 | NUR ---
Notified Dr. Tomas that patient keely Potts [phone] would like updates about patient.
--- NOTE | 2021-03-23 14:26 | NUR ---
Reassessment: Pt continues on nectar thick clear liquid diet and pt not meeting estimated nutrient needs despite good PO intake d/t the nature of current diet. Noted pt with no active GIB per MD note. TC to RN who reports no orders to advance diet at this time. D/w RN recommendation for diet advancement if MD agreeable in view of no GIB and prolonged insufficient diet order. LBM 03/18, documented as small. No appropriate nutrition intervention for constipation given current diet order. Pt receiving routine bowel care with PRN bowel care available. Will continue to follow closely. Recommendations: 1. Advance to regular/MM5/NTL diet per SOFTWARE QUALITY AUTOMATION ENGINEER recs given no active GIB per EMR; lipid panel WNL 2. Monitor need for ONS upon diet advancement 3. Routine bowel care; utilize PRN bowel care given no significant BM in 6 days 4. Scaled wt this admit, subsequent weekly scaled wts Addendum: 03/23/21 at [address] Amended: Links added.
[2021-03-23 15:00] VITALS: BP 134/72
--- NOTE | 2021-03-23 17:38 | NUR ---
Juan Tomas patient Casey Cody room 0282H is being combative and pulling on his Cameron cath. Small amount of blood tinged appears on Cameron. Can we get something to calm him down. Please advise. Luis WEST, [facility][id number]. Addendum: 03/23/21 at 1742 by Luis Sanchez RN Paged Dr. Tomas about patient behavior.
[2021-03-23 18:00] VITALS: BP 159/87
--- NOTE | 2021-03-23 18:16 | NUR ---
Problems reprioritized. Patient report given, questions answered & plan of care reviewed with Aide. Addendum: 03/24/21 at 0659 by Aide Sanchez RN Problems reprioritized. Patient report given, questions answered & plan of care reviewed with Luis.
[2021-03-23] MEDS: digoxin 125mcg (0.125mg) tablet PO SCH (21:10)
[2021-03-23] MEDS: insulin glargine (Lantus) pen - multi-dose SQ SCH (21:48)
[2021-03-24 02:00] VITALS: BP 92/55
[2021-03-24] MEDS: ipratropium/albuterol 3ml nebule NEB SCH ×6 (03:29→22:58)
[2021-03-24 06:00] VITALS: BP 112/70
[2021-03-24 06:50] LABS: ALANINE AMINOTRANSFERASE 28 U/L (12-78); ALBUMIN 2.2 G/DL (3.4-5.0); ALBUMIN/GLOBULIN RATIO 1.1 (1.1-1.5); ALKALINE PHOSPHATASE 65 IU/L (46-116); ANION GAP 4 (8-16); ASPARTATE AMINO TRANSFERASE 17 U/L (10-37); BILIRUBIN,TOTAL 1.1 MG/DL (0.1-1.0); BLOOD UREA NITROGEN 12 MG/DL (7-18); BUN/CREATININE RATIO 24.5 (5.4-32.0); CALCIUM 8.1 MG/DL (8.5-10.1); CHLORIDE 106 MMOL/L (99-107); CREATININE 0.49 MG/DL (0.60-1.10); GLUCOSE 128 MG/DL (70-104); MAGNESIUM 2.2 MG/DL (1.5-2.4); PHOSPHORUS 2.3 MG/DL (2.3-4.5); SODIUM 144 MMOL/L (135-145); TOTAL CARBON DIOXIDE 33.9 MMOL/L (24-32); TOTAL PROTEIN 4.2 G/DL (6.4-8.2); eGFR > 90 ML/MIN
[2021-03-24 07:02] LABS: BASOPHILS % (AUTO) 0.1 % (0-1); EOSINOPHILS % (AUTO) 0.2 % (0-6); HEMATOCRIT 33.5 % (42.0-52.0); HEMOGLOBIN 11.8 g/dl (14.0-17.9); LYMPHOCYTES # (AUTO) 0.6 X10'3 (1.1-4.8); LYMPHOCYTES % (AUTO) 8.6 % (21-51); MEAN CORPUSCULAR HEMOGLOBIN 31.9 PG (27.0-31.0); MEAN CORPUSCULAR HGB CONC 35.3 g/dL (33.0-36.5); MEAN CORPUSCULAR VOLUME 90.4 FL (78-98); MEAN PLATELET VOLUME 7.3 FL (7.4-10.4); MONOCYTES # (AUTO) 0.4 X10'3 (0-0.9); MONOCYTES % (AUTO) 5.3 % (2-12); NEUTROPHILS # (AUTO) 5.9 X10'3 (1.8-7.7); NEUTROPHILS % (AUTO) 85.8 % (42-75); PLATELET COUNT 178 X10'3 (140-440); RED CELL DISTRIBUTION WIDTH 18.2 % (11.5-14.5); WHITE BLOOD COUNT 6.9 X10'3 (4.5-11.0)
[2021-03-24] MEDS: VANCOMYCIN 750MG IV in NS 250 ML IV SCH ×2 (07:55→21:01)
[2021-03-24] MEDS: carVEDilol 12.5mg tablet PO SCH ×2 (07:56→21:13)
[2021-03-24] MEDS: pantoprazole 40mg Tablet.DR PO SCH (07:56)
[2021-03-24] MEDS: methylPREDNISolone sod succ/PF 40mg inj. IV SCH (07:56)
[2021-03-24] MEDS: lactobacillus rhamnosus 10,000 MMU CELLS/CAPSULE PO SCH ×2 (07:56→21:09)
[2021-03-24] MEDS: levoTHYROXINE 175mcg tablet PO SCH (07:56)
[2021-03-24] MEDS: docusate sod 100mg capsule PO SCH ×3 (07:57→21:13)
[2021-03-24] MEDS: lisinopril 10 MG tablet PO SCH (07:57)
[2021-03-24] MEDS: furosemide 40mg/4ml inj IV SCH ×2 (07:57→21:14)
[2021-03-24] MEDS: K and/or MAG REPLACEMENT MC SCH ×2 (07:58→20:00)
[2021-03-24] MEDS: mineral oil/petrolatum, white cream 113gm jar TP SCH ×2 (07:58→21:15)
[2021-03-24 11:00] VITALS: BP 95/66
[2021-03-24 11:59] LABS: TOTAL CELLS COUNTED 100
[2021-03-24 12:06] LABS: ANISOCYTOSIS 2+; ELLIPTOCYTES FEW; PLATELET ESTIMATE NORMAL; TEAR DROP CELLS FEW
[2021-03-24 15:00] VITALS: BP 108/56
[2021-03-24 18:00] VITALS: BP 143/63
--- NOTE | 2021-03-24 18:20 | NUR ---
Problems reprioritized. Patient report given, questions answered & plan of care reviewed with
[2021-03-24] MEDS ORDERED: VANCOMYCIN LEVEL IV ONE (18:30)
[2021-03-24] MEDS: digoxin 125mcg (0.125mg) tablet PO SCH (21:14)
[2021-03-24] MEDS: insulin glargine (Lantus) pen - multi-dose SQ SCH (21:34)
[2021-03-24 22:00] VITALS: BP 122/67
[2021-03-25 02:00] VITALS: BP 120/68
[2021-03-25] MEDS: ipratropium/albuterol 3ml nebule NEB SCH ×5 (03:07→19:34)
[2021-03-25 06:00] VITALS: BP 124/65
--- NOTE | 2021-03-25 06:43 | NUR ---
Problems reprioritized. Patient report given, questions answered & plan of care reviewed with Luis WEST.
[2021-03-25 06:59] LABS: BASOPHILS % (AUTO) 0 % (0-1); EOSINOPHILS % (AUTO) 0.1 % (0-6); HEMATOCRIT 34.4 % (42.0-52.0); HEMOGLOBIN 11.9 g/dl (14.0-17.9); LYMPHOCYTES # (AUTO) 0.4 X10'3 (1.1-4.8); MEAN CORPUSCULAR HEMOGLOBIN 31.9 PG (27.0-31.0); MEAN CORPUSCULAR HGB CONC 34.7 g/dL (33.0-36.5); MEAN PLATELET VOLUME 7.5 FL (7.4-10.4); MONOCYTES # (AUTO) 0.3 X10'3 (0-0.9); MONOCYTES % (AUTO) 3.9 % (2-12); NEUTROPHILS # (AUTO) 6.7 X10'3 (1.8-7.7); PLATELET COUNT 157 X10'3 (140-440); RED BLOOD COUNT 3.74 X10'6 (4.70-6.10); RED CELL DISTRIBUTION WIDTH 18.1 % (11.5-14.5); WHITE BLOOD COUNT 7.4 X10'3 (4.5-11.0)
[2021-03-25] MEDS: methylPREDNISolone sod succ/PF 40mg inj. IV SCH (07:18)
[2021-03-25] MEDS: VANCOMYCIN 750MG IV in NS 250 ML IV SCH ×2 (07:18→19:50)
[2021-03-25] MEDS: pantoprazole 40mg Tablet.DR PO SCH (07:19)
[2021-03-25] MEDS: lisinopril 10 MG tablet PO SCH (07:19)
[2021-03-25] MEDS: carVEDilol 12.5mg tablet PO SCH ×2 (07:19→19:46)
[2021-03-25] MEDS: docusate sod 100mg capsule PO SCH ×3 (07:19→19:46)
[2021-03-25] MEDS: mineral oil/petrolatum, white cream 113gm jar TP SCH ×2 (07:20→20:23)
[2021-03-25] MEDS: lactobacillus rhamnosus 10,000 MMU CELLS/CAPSULE PO SCH ×2 (07:20→19:46)
[2021-03-25] MEDS: levoTHYROXINE 175mcg tablet PO SCH (07:20)
[2021-03-25] MEDS: furosemide 40mg/4ml inj IV SCH ×2 (07:30→19:46)
[2021-03-25 07:40] LABS: ALANINE AMINOTRANSFERASE 26 U/L (12-78); ALBUMIN 2.1 G/DL (3.4-5.0); ALBUMIN/GLOBULIN RATIO 0.9 (1.1-1.5); ALKALINE PHOSPHATASE 61 IU/L (46-116); ANION GAP 5 (8-16); ASPARTATE AMINO TRANSFERASE 13 U/L (10-37); BILIRUBIN,TOTAL 1.1 MG/DL (0.1-1.0); BLOOD UREA NITROGEN 15 MG/DL (7-18); BUN/CREATININE RATIO 34.1 (5.4-32.0); CALCIUM 8.1 MG/DL (8.5-10.1); CHLORIDE 106 MMOL/L (99-107); CREATININE 0.44 MG/DL (0.60-1.10); GLUCOSE 192 MG/DL (70-104); MAGNESIUM 2.2 MG/DL (1.5-2.4); PHOSPHORUS 2.5 MG/DL (2.3-4.5); POTASSIUM 3.6 MMOL/L (3.5-5.1); SODIUM 144 MMOL/L (135-145); TOTAL CARBON DIOXIDE 33.5 MMOL/L (24-32); TOTAL PROTEIN 4.4 G/DL (6.4-8.2); eGFR > 90 ML/MIN
[2021-03-25] MEDS ORDERED: BUPIVAcaine/PF 2.5mg/ml (0.25%) 10ml vial ONE (08:08)
[2021-03-25] MEDS: K and/or MAG REPLACEMENT MC SCH ×2 (08:09→20:00)
[2021-03-25] MEDS ORDERED: fentaNYL/PF 50MCG/1 ML 2ML syringe ONE ×2 (08:12)
[2021-03-25] MEDS ORDERED: midazolam 1 mg/ML 2ml injection ONE (08:13)
--- NOTE | 2021-03-25 08:15 | NUR ---
Patient had a biopsy procedure today which was cancelled. NPO sign outside patient room door. Aide accidentally gave patient breakfast tray. Dr. Case and surgeon made aware.
[2021-03-25 11:00] VITALS: BP 125/68
[2021-03-25 15:00] VITALS: BP 152/82
[2021-03-25 18:00] VITALS: BP 117/67
[2021-03-25] MEDS: digoxin 125mcg (0.125mg) tablet PO SCH (20:18)
[2021-03-25] MEDS: insulin glargine (Lantus) pen - multi-dose SQ SCH (21:00)
[2021-03-25 22:00] VITALS: BP 110/59
[2021-03-26] VITALS (22 sets, daily range): BP systolic 106–157; BP diastolic 70–99
[2021-03-26] MEDS: ipratropium/albuterol 3ml nebule NEB SCH ×6 (00:30→20:39)
[2021-03-26] MEDS: levoTHYROXINE 175mcg tablet PO SCH (07:00)
--- NOTE | 2021-03-26 07:09 | NUR ---
Problems reprioritized. Patient report given, questions answered & plan of care reviewed with Rosita.
[2021-03-26] MEDS: pantoprazole 40mg Tablet.DR PO SCH (07:30)
[2021-03-26] MEDS: VANCOMYCIN 750MG IV in NS 250 ML IV SCH ×2 (07:39→21:58)
[2021-03-26] MEDS: lisinopril 10 MG tablet PO SCH (08:00)
[2021-03-26] MEDS: lactobacillus rhamnosus 10,000 MMU CELLS/CAPSULE PO SCH ×2 (08:00→21:57)
[2021-03-26] MEDS: mineral oil/petrolatum, white cream 113gm jar TP SCH ×2 (08:00→20:00)
[2021-03-26] MEDS: docusate sod 100mg capsule PO SCH ×3 (08:00→21:57)
[2021-03-26] MEDS: carVEDilol 12.5mg tablet PO SCH ×2 (08:00→21:58)
[2021-03-26] MEDS ORDERED: LIDOcaine 1% (10mg/ml) 2ml vial ONE (08:21)
--- NOTE | 2021-03-26 08:30 | NUR ---
Patient left the floor for biopsy, in stable condition, accompanied by 2 attendants.
[2021-03-26] MEDS ORDERED: fentaNYL /PF 50mcg/ml 5ml ampule ONE (09:01)
[2021-03-26] MEDS ORDERED: albumin (Human) 5% 250ml BOTTLE IV ONE (09:02)
[2021-03-26] MEDS ORDERED: sevoflurane 250ml liquid IH ONE (09:02)
[2021-03-26] MEDS ORDERED: rocuronium 10mg/ml inj IV ONE ×2 (09:02→09:40)
[2021-03-26] MEDS ORDERED: propofol inj 20 ML IV ONE (09:40)
[2021-03-26] MEDS ORDERED: LIDOcaine 2% (20mg/ml) 5ml vial ONE (09:40)
[2021-03-26] MEDS ORDERED: epiNEPHrine 1 mg/ml inj ONE (09:41)
[2021-03-26] MEDS ORDERED: phenylephrine 10mg/ml inj. ONE (09:41)
[2021-03-26] MEDS ORDERED: sugammadex 200mg/2ml injection IV ONE ×2 (10:21)
[2021-03-26] MEDS ORDERED: ondansetron/PF 4mg/2ml inj ONE (10:25)
[2021-03-26] MEDS ORDERED: ondansetron/PF 4mg/2ml inj IV PRN (10:35)
[2021-03-26] MEDS ORDERED: ringers solution, lacted 1,000 ML IV SCH (10:35)
[2021-03-26] MEDS ORDERED: morphine 2 MG/ML inj. syringe IV PRN (10:35)
[2021-03-26] MEDS ORDERED: midazolam 1 mg/ML 2ml injection ONE (10:55)
--- NOTE | 2021-03-26 11:04 | NUR ---
NO scd'S AT THIS TIME BILATERAL LEG WOUND DRESSING DRAINING YELLOW SECRETIONS Addendum: 03/26/21 at 1115 by Renetta Sanchez RN Amended: Links added.
[2021-03-26] MEDS ORDERED: midazolam 1 mg/ML 2ml injection IV ONE (11:05)
[2021-03-26] MEDS ORDERED: insulin regular, human 10 units/0.1 ml syringe IV ONE (11:35)
--- NOTE | 2021-03-26 11:46 | NUR ---
RIGHT RADIAL ARTERIAL LINE REMOVED WITHOUT DIFFICULTY, PRESSURE HELD FOR 5 MINUTES, NO BLEEDING NOTED, COBAN DRESSING APPLIED. Addendum: 03/26/21 at 1148 by Renetta Sanchez RN Amended: Links added.
--- NOTE | 2021-03-26 12:42 | NUR ---
PT CALM AND RELAXED, BLOOD SUGAR CHECKED AFTER GIVING 6 UNITS OF REGULAR INSULIN IV. BS 179. DR CUEVAS AWARE. PATIENT HAS MET ALL CRITERIA FOR TRANSFER TO THE PCU FLOOR. VSS. DRESSINGS INTACT. BED LOW, CALL LIGHT PRESENT AND 2 RAILS UP. ARMAND WEST, PRESENT TO ACCEPT CARE OF PATIENT AND REPORT HAS BEEN CALLED. ALL QUESTIONS ANSWERED TO ACCEPTING RN. DR BENAVIDEZ AT BEDSIDE, CHECKING ON PT. Addendum: 03/26/21 at 1246 by Renetta Sanchez RN Amended: Links added.
--- NOTE | 2021-03-26 14:59 | NUR ---
Reassessment: Pt diet advanced to EC7/NTL 03/24, PO intake ~81% of meals, meeting ~90% of energy needs and ~76% of protein needs. Pt could benefit from double protein BIDBD to help meet kcal/protein needs. Noted pt diet EC7/NTL w/ recommendation of MM5/NTL per FIRE CODE INSPECTOR note 03/15. Recommend follow-up BSS. LBM 03/25, receiving routine bowel care with PRN bowel care available. Will continue to follow closely. Recommendations: 1. Continue Regular diet w/ texture per FIRE CODE INSPECTOR; pending f/u assessment 2. Double protein BIDBD 3. Routine bowel care 4. Weekly scaled wts Addendum: 03/26/21 at 1500 by Rudy Madden - Valeria Frankel RD Amended: Links added. Addendum: 03/26/21 at [address] I have reviewed assessment by rn international
[2021-03-26] MEDS: methylPREDNISolone sod succ/PF 40mg inj. IV SCH (16:54)
[2021-03-26] MEDS: furosemide 40mg/4ml inj IV SCH ×2 (16:54→22:09)
[2021-03-26] MEDS: insulin Lispro (HumaLOG) vial - multi-dose SQ SCH (17:49)
[2021-03-26] MEDS: digoxin 125mcg (0.125mg) tablet PO SCH (21:58)
[2021-03-26] MEDS: insulin glargine (Lantus) pen - multi-dose SQ SCH (22:16)
[2021-03-27] MEDS: ipratropium/albuterol 3ml nebule NEB SCH ×5 (00:20→15:21)
[2021-03-27 02:00] VITALS: BP 113/77
[2021-03-27 06:00] VITALS: BP 104/72
[2021-03-27] MEDS: levoTHYROXINE 175mcg tablet PO SCH (07:38)
[2021-03-27] MEDS: furosemide 40mg/4ml inj IV SCH (07:38)
[2021-03-27] MEDS: VANCOMYCIN 750MG IV in NS 250 ML IV SCH (07:38)
[2021-03-27] MEDS: pantoprazole 40mg Tablet.DR PO SCH (07:38)
[2021-03-27] MEDS: methylPREDNISolone sod succ/PF 40mg inj. IV SCH (07:38)
[2021-03-27] MEDS: lactobacillus rhamnosus 10,000 MMU CELLS/CAPSULE PO SCH (07:50)
[2021-03-27 07:51] VITALS: BP_SYST 140
[2021-03-27] MEDS: carVEDilol 12.5mg tablet PO SCH (07:51)
[2021-03-27] MEDS: lisinopril 10 MG tablet PO SCH (07:51)
[2021-03-27] MEDS: docusate sod 100mg capsule PO SCH ×2 (08:00→08:37)
[2021-03-27] MEDS: mineral oil/petrolatum, white cream 113gm jar TP SCH (08:00)
[2021-03-27] MEDS: insulin Lispro (HumaLOG) vial - multi-dose SQ SCH ×2 (09:02→13:28)
--- NOTE | 2021-03-27 14:09 | NUR ---
Bilateral lower leg open blisters. Photo taken (see Chart) Addendum: 03/27/21 at 1410 by Rosita Sanchez RN Amended: Links added.
--- NOTE | 2021-03-27 16:10 | NUR ---
[facility], accompanied by 2 attendants via [facility]. Report given to nurse Alcala.
== END 2021-03-27 16:10 | DRG 826 ==
LOC: ER 11:02 → ED HOLD 18:39 → PCU 3S 20:50
PROVIDERS: ADMIT Family Medicine; ATTEND Family Medicine
PROC: BW251ZZ Computerized Tomography (CT Scan) of Chest, Abdomen and Pelvis using Low Osmolar Contrast (ICD-10-PCS; 2021-03-14)
PROC: B3251ZZ Computerized Tomography (CT Scan) of Bilateral Common Carotid Arteries using Low Osmolar Contrast (ICD-10-PCS; 2021-03-15)
PROC: B32G1ZZ Computerized Tomography (CT Scan) of Bilateral Vertebral Arteries using Low Osmolar Contrast (ICD-10-PCS; 2021-03-15)
PROC: B32R1ZZ Computerized Tomography (CT Scan) of Intracranial Arteries using Low Osmolar Contrast (ICD-10-PCS; 2021-03-15)
PROC: B3281ZZ Computerized Tomography (CT Scan) of Bilateral Internal Carotid Arteries using Low Osmolar Contrast (ICD-10-PCS; 2021-03-15)
PROC: 0DBH8ZZ Excision of Cecum, Via Natural or Artificial Opening Endoscopic (ICD-10-PCS; 2021-03-17)
PROC: 0W3P8ZZ Control Bleeding in Gastrointestinal Tract, Via Natural or Artificial Opening Endoscopic (ICD-10-PCS; 2021-03-17)
PROC: CW1 Nuclear Medicine, Anatomical Regions, Planar Nuclear Medicine Imaging (ICD-10-PCS; 2021-03-21)
PROC: 0WBC4ZX Excision of Mediastinum, Percutaneous Endoscopic Approach, Diagnostic (ICD-10-PCS; principal; 2021-03-26 09:02)
DX: C7B.8 Other secondary neuroendocrine tumors (principal); K57.31 Diverticulosis of large intestine without perforation or abscess with bleeding; G93.41 Metabolic encephalopathy; I21.A1 Myocardial infarction type 2; E43 Unspecified severe protein-calorie malnutrition; I50.23 Acute on chronic systolic (congestive) heart failure; C38.3 Malignant neoplasm of mediastinum, part unspecified; J44.1 Chronic obstructive pulmonary disease with (acute) exacerbation; Z68.41 Body mass index [BMI] 40.0-44.9, adult; E66.2 Morbid (severe) obesity with alveolar hypoventilation; L03.119 Cellulitis of unspecified part of limb; Z20.822 Contact with and (suspected) exposure to COVID-19; E03.9 Hypothyroidism, unspecified; G89.29 Other chronic pain; E87.6 Hypokalemia; R62.7 Adult failure to thrive; E11.51 Type 2 diabetes mellitus with diabetic peripheral angiopathy without gangrene; R09.02 Hypoxemia; I11.0 Hypertensive heart disease with heart failure; S80.822A Blister (nonthermal), left lower leg, initial encounter; S80.821A Blister (nonthermal), right lower leg, initial encounter; X58.XXXA Exposure to other specified factors, initial encounter; I35.9 Nonrheumatic aortic valve disorder, unspecified; R59.0 Localized enlarged lymph nodes; I48.0 Paroxysmal atrial fibrillation; K21.9 Gastro-esophageal reflux disease without esophagitis; K64.8 Other hemorrhoids; M85.80 Other specified disorders of bone density and structure, unspecified site; Z74.01 Bed confinement status; Z79.01 Long term (current) use of anticoagulants; Z79.899 Other long term (current) drug therapy; Z79.82 Long term (current) use of aspirin; Y93.89 Activity, other specified; Y92.89 Other specified places as the place of occurrence of the external cause; Y99.8 Other external cause status
CPT/HCPCS: 36000; 36415; 36600; 45335; 45385; 70450; 70496; 70498; 71045; 71260; 74177; 76937; 78306; 80048; 80053; 80061; 80162; 80202; 81001; 82140; 82607; 82803; 82948; 83036; 83605; 83735; 83880; 84100; 84132; 84145; 84443; 84484; 85007; 85018; 85025; 85027; 85379; 85610; 85651; 85730; 86140; 86592; 86885; 86900; 86901; 87040; 87081; 87635; 88184; 88185; 88305; 88331; 88341; 88342; 88360; 92508; 92616; 93005; 93306; 93880; 94640; 94760; 96374; 97110; 97116; 97161; 97530; 99152; 99153; 99291; A4215; A4618; A4620; A6258; A7000; A9503; C1773; C9113; C9803; G0378; J0171; J0360; J0696; J1815; J1940; J2250; J2370; J2405; J2704; J2920; J3010; J3370; J3430; J3490; J7030; J7050; J7120; P9045; Q0163; Q9967